=== PATIENT | male | born 1935 | race Caucasian/White ===

== ENCOUNTER 2017-07-25 21:39 | Inpatient (IN) | payer OTHER ==
[~2017-07-25] VITALS: Ht 185.4 cm; Wt 78.9 kg
--- NOTE | ~2017-07-25 | HC ---
[facility] [place] [address] CONSULTATION Name: RILEYLETY Barrett Room #: 354-P [facility] IN M.R.#: [id number] Admission: 07/25/17 Attend Phys: Kevin Browne DO Discharge: Date of : 31 Report #: [id number] THIS REPORT FOR: //name// CC: Kevin Santamaria REASON FOR CONSULTATION: I was asked to evaluate concerning colitis and perforation. HISTORY OF PRESENT ILLNESS: The patient is an 82-year-old with history of hypertension, Parkinson's disease, who presented on 07/25/2017 through the Emergency Room with generalized weakness, fever, increased abdominal pain. CT scan showed an 8 cm wall thickening of the mid ascending colon that was concerning for malignancy. There was focal ulceration of the wall with an intramural abscess surrounding inflammation and multiple hepatic lesions consistent with metastases. He was given broad spectrum antibiotics and sent to surgery today by Dr. Baxter. I was able to discuss with him postoperatively. He found the area of concern with what he thought was a small microperforation into the retroperitoneum with no purulent material, stool or abscess. There were a few bubbles of air identified. Biopsies of the liver were performed as well. There were no intraoperative complications. He did perform a right hemicolectomy. The patient was seen in the postop recovery area and was stable. Oxygenation was adequate on room air. Hemodynamically stable. ALLERGIES: None known. MEDICATIONS: As noted on his OCT, now on vancomycin and Zosyn. PAST MEDICAL HISTORY: Appendectomy, tonsillectomy, prostate cancer with prostatectomy in 2004, Parkinson's disease, hyperlipidemia, hypertension, chronic back pain. FAMILY HISTORY: Noncontributory. SOCIAL HISTORY: He is a nonsmoker, no significant alcohol intake. REVIEW OF SYSTEMS: The patient was unable to give any further details for he is just waking up under anesthesia. PHYSICAL EXAMINATION: VITAL SIGNS: Afebrile, hemodynamically stable. He would arouse and answer simple questions. GENERAL: He was confused. SKIN: Unremarkable. LYMPH: Unremarkable. HEENT: Unremarkable. LUNGS: Clear. [facility] [address] [facility] [place] [address] CONSULTATION Name: LETY LIN Room #: 354-P [facility] IN M.R.#: [id number] Admission: 07/25/17 Attend Phys: Kevin Browne DO Discharge: Date of : 33 Report #: [id number] HEART: Regular with a 2/6 systolic murmur heard at left sternal border. ABDOMEN: Diffusely tender. Drain in the right mid quadrant had serosanguineous output. EXTREMITIES: Unremarkable. LABORATORY STUDIES: Sodium 139, potassium 3.7, bicarbonate 26, creatinine 0.9. Liver function test normal. Albumin at 2.0. Hemoglobin 8.2, WBC 21,000, platelet count was 526,000, neutrophils 86%, bands 1. Urinalysis 1+ ketones, 1+ blood, otherwise unremarkable. Blood cultures are pending. Cultures of the liver lesions were sent and are pending. CT scan as noted above. Chest x-ray, no acute infiltrates. IMPRESSION AND PLAN: An 82-year-old with suspected colon cancer and mets to the liver. This is yet to be confirmed by pathology. Suspecting microperforation into the retroperitoneum. I would recommend continuing Zosyn pending further studies. Duration of antibiotics will depend upon his initial recovery. Follow up CBC post postop. <ELECTRONICALLY SIGNED> By: Blaze Bateman MD 07/30/17 1417 1714 [id number] Blaze Bateman MD /nt
--- NOTE | ~2017-07-25 | HC ---
[facility] [place] [address] CONSULTATION Name: RILEYLETY Barrett Room #: 354-P [facility] IN ..#: [id number] Admission: 07/25/17 Attend Phys: Dimitrios Weston MD Discharge: Date of : 33 Report #: [id number] THIS REPORT FOR: //name// CC: Dimitrios Santamaria DATE OF SERVICE: 07/31/2017 HISTORY OF PRESENT ILLNESS: The patient is an 82-year-old white male with history of Parkinson disease, hypertension, had complaints of weakness, left lower quadrant pain. He was noted to have sepsis secondary to an abdominal abscess and was diagnosed with an ascending colonic mass with a pericolonic abscess. He underwent surgery by Dr. Baxter, with a laparoscopic converted to open right hemicolectomy with stapled ileotransverse colostomy. He also had core needle liver biopsies, this was done on 07/26/2017. He has been seen by Dr. Dutton, in Oncology. The path report appears to still be pending. He did have some confusion, delirium, postoperatively that appears to be improving. We are seeing him in rehabilitation medicine consultation. He was noted to have delirium/encephalopathy, but again this is showing some improvement. Geriatrics is involved and did decrease his Sinemet to one tablet and monitoring in this regard. We are seeing him now in rehabilitation medicine consultation. PAST MEDICAL HISTORY: Parkinson disease, hypertension, elevated cholesterol, chronic back pain, and prostate cancer, status post prostatectomy. Low back issues for which he follows with the [facility] and he has had intermittent injections. PAST SURGICAL HISTORY: Includes adenoidectomy and tonsillectomy. MEDICATIONS: Please see his full medication listing. ALLERGIES: No known drug allergies. HABITS: No history of tobacco or alcohol abuse. SOCIAL HISTORY: Lives with his in an independent living apartment at [facility]. He is a premorbid cane ambulator. He also has a Parkinson's walker that he obtained through the [place] that he will utilize at times as well. Apparently, this is U-step walker with the laser cane. REVIEW OF SYSTEMS: No current complaints of chest pain, shortness of breath, or abdominal discomfort. He has had the chronic back problems. No focal extremity pain complaints at this time. He typically wears TENS. Premorbidly, he was able to put on his own shirt and could typically pull up his TENS, although his did help him with some of his ADLs. [facility] [address] [place] [address] CONSULTATION Name: LETY LIN Room #: 354-P [facility] IN [facility].#: [id number] Admission: 07/25/17 Attend Phys: Dimitrios Weston MD Discharge: Date of : 33 Report #: [id number] PHYSICAL EXAMINATION: GENERAL: An 82-year-old white male, in no obvious distress. VITAL SIGNS: Last recorded temperature is 98.6, pulse 72, respirations 18, blood pressure 139/62. NEUROLOGIC: The patient is alert. He does have some latency to his responses. Defers to his . Appears to be rather concrete, but does follow basic 1 step commands. Need some cues. EOMs appeared to be full. Some evidence of masked facies. CHEST: Sounded clear to auscultation. CARDIOVASCULAR: Regular rate and rhythm. ABDOMEN: He has an abdominal binder in place. EXTREMITIES: He has the wound VAC over the midline incision. Abdomen appears soft. He does have mild resting tremor and has some cogwheeling bilateral wrists and elbows. Strength is grade 4-3+/5. DTRs are trace to 1. Lower extremities, no focal calf swelling, 1+ distal lower extremity edema. Strength is a grade 3+ to 4-/5. DTRs are decreased. There appears to be some mild rigidity. He was max assist with sit to stand and took a few steps mod assist at a walker level. ASSESSMENT: An 82-year-old white male with the following problem list: 1. Parkinson disease. 2. Metabolic encephalopathy, which appears to be improving. 3. Status post hemicolectomy with liver biopsy, 07/26/2017, biopsies are pending. 4. Sepsis secondary to abdominal abscess with suspected colon cancer. 5. Mild pleural effusions. 6. Anemia. 7. Hypertension. 8. History of prostate cancer, status post prostatectomy. 9. Enlarged aorta by history. PLAN: We would anticipate the patient should be a good acute in-hospital inpatient rehabilitation candidate. From a preadmission screening perspective: 1. Prior level of function is well delineated above. 2. Expect the level of improvement would be for him to achieve ambulation at the cane versus walker level. Ideally at a modified independent to supervision level, we would anticipate length of stay of probably at least 10 days to 2 weeks and likely longer if needed. 3. Evaluation of the patient's risk for clinical complications would include his multiple comorbidities as noted above. His encephalopathy continues to be monitored. He has the Parkinson disease. We do not have the path report back yet on his surgery. He has anemia that is being monitored, hypertension, mild pleural effusions. There is also a note of some anorexia/p.o. intake that will need to be monitored. 4. Condition that caused the need for rehabilitation would be the Parkinson disease as well as the acute encephalopathy. [address] [address] CONSULTATION Name: LETY LIN Room #: 354-P ADM IN [facility]#: [id number] Admission: 07/25/17 Attend Phys: Dimitrios Weston MD Discharge: Date of : 33 Report #: [id number] 5. Treatments needed include PT, OT, and speech 1 hour per day each, five days a week throughout the duration of the acute inpatient rehabilitation stay. 6. Anticipated discharge destination would be back to the home setting with his . 7. Would anticipate home healthcare therapies once the patient is ready for discharge home. 8. The patient meets diagnostic criteria for an acute in-hospital inpatient rehabilitation stay. He meets medical necessity criteria with the above noted medical comorbidities. We will have the strategic planning consultant physicians follow. He is on the rehab guidry. He does have the tolerance for an acute rehabilitation level of therapies and has appropriate discharge goals back to the home setting. By: 1200 1251 Yohan Soria MD /COLLEEN
--- NOTE | ~2017-07-25 | S ---
[facility] [address] [place] [address] SURGICAL PATH RPT PROCEDURE Name: LETY LIN Room #: 354-P ADM IN M.R.#: [id number] Admission: 07/25/17 Date of : 31 Discharge: Report #: [id number] Path Case #: [id number] PATHOLOGY REPORT COLLECTION DATE: 07/26/2017 RECEIVED DATE: 07/26/2017 SUBMITTING PHYS: Dr. Eric Baxter OTHER PHYS: Dr. Kevin Santamaria SPECIMEN(S) RECEIVED: A.Right colon B.Liver bx x2 C.Anastomotic ring * * * * * * * * * * * * FINAL DIAGNOSIS: A. "Right colon", hemicolectomy: - ADENOCARCINOMA, MODERATE TO POORLY DIFFERENTIATED, WITH EXTENSIVE ULCERATION AND TUMOR NECROSIS, FORMING THREE SEPARATE MASSES MEASURING 7.4 CM, 6.8 CM AND 4.1 CM THAT ARE SIMILAR MORPHOLOGICALLY, ONE MASS INVADING THROUGH THE MUSCULARIS PROPRIA, INTO THE SUBSEROSAL ADIPOSE TISSUES AND EXTENDING TO THE INKED SEROSAL MARGIN (pT4); MUCOSAL MARGINS FREE OF DYSPLASIA AND CARCINOMA. - Terminal ileum with large inflammatory polyp measuring 1.8 cm; no dysplasia seen. - Lymph nodes (30) with no evidence of metastatic carcinoma (30 nodes). - Omentum, 15.5 cm, with no evidence of carcinoma. B. "Liver bx x2", needle biopsy: - METASTATIC ADENOCARCINOMA WITH EXTENSIVE NECROSIS, MORPHOLOGICALLY SIMILAR TO THE COLON MASSES; NO BACKGROUND VIABLE LIVER TISSUE PRESENT. C. "Anastomotic ring", redawnastomosis: - Small bowel mucosa, submucosa and muscular wall and colonic mucosa, submucosa and muscular wall with reactive changes and chronic inflammation; no evidence of carcinoma. SYNOPTIC CANCER STAGING REPORT SPECIMEN Specimen: Terminal ileum Cecum Ascending colon Procedure: Right hemicolectomy TUMOR [facility] [address] [place] [address] SURGICAL PATH RPT PROCEDURE Name: RILEYLETY E Room #: 354-P [facility] IN [facility]#: [id number] Admission: 07/25/17 Date of : 33 Discharge: Report #: [id number] Path Case #: [id number] Primary Tumor Site: Right (ascending) colon Histologic Type: Adenocarcinoma Histologic Grade: High-grade (poorly differentiated to undifferentiated) Tumor Size: Greatest dimension (cm): 7.4 Tumor Deposits: Present Number of Deposits: Cannot be determined Tumor Extent Site(s) of Direct Extent of Tumor: Right (ascending) colon Microscopic Tumor Extension: Tumor penetrates to the surface of the visceral peritoneum (serosa) Macroscopic Tumor Perforation: Not Identified Accessory Tumor Findings Lymph-Vascular Invasion: Present Perineural Invasion: Present MARGINS All margins uninvolved by invasive carcinoma Distance of Invasive Carcinoma from Closest Margin: Specify (cm): 4.6 Specify Margin: Distal For Resection Specimens Only Proximal Margin: Uninvolved by invasive carcinoma Distal Margin: Uninvolved by invasive carcinoma Distance of Tumor from Margin (required only for rectal tumors): Specify (cm): 4.6 Circumferential (Radial) Margin: Not applicable Mesenteric Margin: Not applicable LYMPH NODES Regional Lymph Nodes: Number of Lymph Nodes Examined: Specify number: 30 Number of Lymph Nodes Involved: Specify number: 0 STAGE (PTNM) Primary Tumor (pT): pT4a: Tumor penetrates the visceral peritoneum Regional Lymph Nodes (pN): pN0: No regional lymph node metastasis Distant Metastasis (pM): pM1: Distant metastasis COMMENT: All three tumor masses are similar histologically. They are moderate to poorly differentiated adenocarcinoma with patchy mucin production. Due to the patient's history of prostate cancer, properly controlled immunohistochemical stains are performed. Block A23 [address] [address] SURGICAL PATH RPT PROCEDURE Name: LETY LIN Room #: 354-P [facility] IN M.R.#: [id number] Admission: 07/25/17 Date of : 33 Discharge: Report #: [id number] Path Case #: [id number] CK7 tumor cells focally reactive CK20 tumor cells non-reactive CDX2 tumor cells focally reactive PSA tumor cells non-reactive PSAP tumor cells non-reactive Overall, based on morphology and immunohistochemistry, the findings are most consistent with a colon primary. Manager Product slides are co-reviewed with Dr. Syed Boyer. The case is discussed with Dr. Andrea Dutton on 07/31/17 at approximately 11:15 AM. (CLW:kelsi; 07/30/2017) PATHOLOGIST: Emiliana Montiel M.D. REPORT ELECTRONICALLY SIGNED BY: Emiliana Montiel M.D. DATE/TIME: 07/31/2017 12:35 * * * * * * * * * * * * GROSS PATHOLOGY: A. Received in formalin labeled "Lety White, right colon" is a right hemicolectomy specimen consisting of a portion of terminal ileum (4.7 x 2.2 cm), a cecum (9.2 x 6.6 x 5.5 cm), and a portion of proximal colon (24.0 x 4.5 cm). The appendix is not present. A portion of yellow-richardson finally lobulated omentum is identified on the distal aspect of the portion of colon, which measures 15.5 x 10.5 x 0.5 cm. The omentum is serially sectioned to reveal no masses or nodules. The serosal surface is pink-richardson and ragged with a 13.0 x 6.6 cm area of richardson-white purulent exudate on the proximal portion of the colon, and a separate richardson-white firm area more distal on the colon measuring 1.6 x 1.5 cm. The specimen is received closed at both ends with staple lines. The specimen is opened to reveal a pedunculated richardson-brown tumor in the terminal ileum, and three tumors present within the colon. The terminal ileum tumor measures 1.8 x 0.8 x 0.7 cm, and is located 1.0 cm from the proximal margin, 3.8 cm from the ileocecal valve, 26.2 cm from the distal margin, and 1.8 cm from the mesenteric margin. Upon sectioning, the tumor does not grossly invade into the muscle wall of the terminal ileum. Colon tumor 1 is pink-richardson, ulcerated, and is nodular, and is located in the proximal portion of the colon and measures 4.6 cm in length and 7.4 cm in width. The tumor measures 9.7 cm to the proximal margin, 15.0 cm to the distal margin, and 2.0 cm to the closest mesenteric margin. The serosal surface deep to the tumor is inked black. Upon sectioning, the tumor grossly invades into the pericolonic fat and measures 0.1 cm from the inked surface. An area is identified where the tumor erodes into the pericolonic fat causing a transmural defect measuring 1.3 x 0.8 x 0.7 cm. This area corresponds with the richardson-white purulent exudate on the proximal portion of the colon. [address] [address] SURGICAL PATH RPT PROCEDURE Name: LETY LIN Room #: 354-P [facility] IN M.R.#: [id number] Admission: 07/25/17 Date of : 33 Discharge: Report #: [id number] Path Case #: [id number] Colon tumor 2 is richardson-brown, necrotic, and ulcerated, measures 5.8 cm in length and 6.8 cm in circumference, and is located 2.9 cm distal from colon tumor 1. Colon tumor 2 measures 15.0 cm to the proximal margin, 8.3 cm to the distal margin, and less than 0.1 cm to the closest mesenteric margin. The serosal surface deep to the tumor is inked blue. Colon tumor 2 is also associated with the first described area of purulent exudate on the serosa. Upon sectioning, the tumor grossly invades into the pericolonic fat and is located less than 0.1 cm from the inked surface. Colon tumor 3 is pink-richardson, ulcerated, and nodular, and is located 2.0 cm distal to tumor 2. Colon tumor 3 measures 3.3 cm in length, 4.1 cm in width, and is located 22.5 cm from the proximal margin, 4.6 cm from the distal margin, and 3.8 cm from the mesenteric margin. Colon tumor 3 is associated with the smaller richardson-white firm area on the serosa. The serosa deep to the tumor is inked green. Upon sectioning, the tumor grossly invades into the muscle wall and grossly abuts the inked serosa (at the richardson-white firm area previously described). The pericolonic fat is serially sectioned and palpated to reveal multiple pink-richardson possible lymph nodes ranging from 0.2-1.0 cm in greatest dimension. Manager Product sections of the specimen are submitted as follows: A1 proximal mucosal margin A2 distal mucosal margin A3 shave of the mesenteric margin closest to colon tumor 1 A4 mesenteric margin closest to colon tumor 2, true margin inked blue, perpendicular section A5 shave of the mesenteric margin closest to colon tumor 3 A6 uninvolved tissue between colon tumors 1 and 2 A7 uninvolved tissue between colon tumors 2 and 3 A8 compliance representative omentum A9 compliance representative ileocecal valve A10 shave of the mesenteric margin closest to the terminal ileum tumor A11-A12 entire terminal ileum tumor A13 transmural defect adjacent to colon tumor 1 A14 purulent exudate on serosa adjacent to colon tumor 1 A15 colon tumor 1 with deepest invasion and to inked surface A16 colon tumor 1 to uninvolved mucosa A17 additional colon tumor 1 A18 colon tumor 2 to uninvolved mucosa A19 colon tumor 2 with deepest invasion and to inked surface A20-A22 addition colon tumor 2 A23 colon tumor 3 to inked serosa A24 colon tumor 3 to uninvolved mucosa A25 additional colon tumor 3 A26-A28 multiple whole lymph nodes A29-A32 three bisected lymph nodes in each cassette, inked black, blue, and green. [address] [address] SURGICAL PATH RPT PROCEDURE Name: LETY LIN Room #: 354-P ADM IN M.R.#: [id number] Admission: 07/25/17 Date of : 33 Discharge: Report #: [id number] Path Case #: [id number] B. Received in formalin labeled "Lety Lin, liver biopsy 2" are two cylindrical cores of richardson-white soft tissue measuring 1.1 x 0.1 and 1.7 x 0.1 cm. The specimen is submitted in cassette B1. C. Received in formalin labeled "Lety Lin, anastomosis" is a 3.3 x 1.2 x 0.8 cm portion of pink-richardson mucosa. The specimen is sectioned to reveal an embedded staple line measuring 1.5 cm. No gross abnormalities are identified. Manager Product sections of the specimen are submitted in cassette C1. ([facility]; 07/28/2017) CLINICAL HISTORY: Perforated ascending colon. INITIAL CPT CODE(S): A; 62753, 31030, 63703, 20383, 68176, 50036, 71046 B; 74255 C; 69961 Professional services performed by [facility] at [place] [address], [place] [address] Technical services performed by [facility] at [address] [place] [address], [address], [place] [address]. [facility] [address] [address] PHONE: [phone] DIRECTOR: Richard Reynoso M.D. * * * END OF REPORT * * *
--- NOTE | ~2017-07-25 | CNG ---
[facility] [place] [address] CYTO-NONGYN REPORT PROCEDURE Name: LETY LIN Room #: 354-P [facility] IN M.R.#: [id number] Admission: 07/25/17 Date of : 33 Discharge: 07/31/17 Report #: [id number] Path Case #: [id number] CYTOPATHOLOGY REPORT COLLECTION DATE: 07/26/2017 RECEIVED DATE: 07/30/2017 SUBMITTING PHYS: Dr. Kevin Browne OTHER PHYS: Dr. Eric Santamaria CLINICAL HISTORY: Perforated ascending colon, sepsis, abdominal pain leukocytosis. SPECIMEN(S) RECEIVED: A.Peritoneal fluid * * * * * * * * * * * * FINAL DIAGNOSIS: A. Peritoneal fluid: Rare atypical cells identified. - Rare atypical cells identified in a marked inflammatory background. Comment: No stainin is seen in the atypical cells with the CDX-2 stain. The atypical cells are positive for calretinin and most likely represent reactive mesothelial cells PATHOLOGIST: Bert Boyer M.D. REPORT ELECTRONICALLY SIGNED BY: Bert Boyer M.D. DATE/TIME: 08/02/2017 08:55 * * * * * * * * * * * * GROSS PATHOLOGY: A. Peritoneal fluid: The specimen is submitted unfixed, labeled "Lety Lin". Received by the Cytology Department is 5 mL of cloudy pink fluid. One ThinPrep slide and a formalin fixed cell block were prepared. (clt 07.30.2017) BIOMASS PRODUCTION MANAGER(S): CRUZITO Newton([facility]) INITIAL CPT CODE(S): A; 27059, 34319, 68631, 42909 Professional services performed by [facility] at [facility] [address], [place] [address] Technical services performed by [facility] at [address] [place] [address], [address] [address]. [facility] [address] [place] [address] CYTO-NONGYN REPORT PROCEDURE Name: LETY LIN Room #: 354-P [facility] IN M.R.#: [id number] Admission: 07/25/17 Date of : 33 Discharge: 07/31/17 Report #: [id number] Path Case #: [id number] [facility] [address] [place] [address], [address] [place] [address] PHONE: [phone] DIRECTOR: Richard Reynoso M.D. * * * END OF REPORT * * *
--- NOTE | ~2017-07-25 | HC ---
[facility] [place] [address] CONSULTATION Name: LETY LIN Room #: 354-P [facility] IN ..#: [id number] Admission: 07/25/17 Attend Phys: Dimitrios Weston MD Discharge: Date of : 33 Report #: [id number] THIS REPORT FOR: //name// CC: Kevin Santamaria MD DATE OF SERVICE: 07/26/2017 TYPE OF REPORT: General surgery consultation. ATTENDING PHYSICIAN: Kevin Browne D.O. REASON FOR CONSULTATION: Abdominal pain and colon mass. HISTORY OF PRESENT ILLNESS: This is an 82-year-old male patient with a history of prostate cancer and Parkinson's disease, who presented to the [place] [facility] with a 2-week history of right-sided abdominal pain, fever (temperature as high as 100 degrees) and unintentional 10-pound weight loss. CT of the abdomen and pelvis was performed, showing an intramural abscess by the Micah rouse. The radiologist at [facility] felt that the colon was more consistent with a perforation. Tumor could not be excluded with local invasion, nor could inflammatory mass be excluded. In addition to this, liver lesions were seen, felt to represent potential metastatic disease. I have been asked to see the patient for further evaluation and treatment. He denies having undergone a colonoscopy in the past. Denies the passage of bright red blood per rectum. He notes no passage of flatus or stools over the past 4 days, although he has been eating up until yesterday. He denies fever or chills. PAST MEDICAL HISTORY: Significant for Parkinson's disease, history of prostate cancer, hypertension, hyperlipidemia and back pain. PAST SURGICAL HISTORY: Includes tonsillectomy, appendectomy and robotic prostatectomy in 2004. HOME MEDICATIONS: Include aspirin, atorvastatin, ezetimibe, carbidopa/levodopa, ascorbic acid, and midodrine. The patient is also receiving vancomycin and Zosyn here in the hospital. ALLERGIES: No known drug allergies. FAMILY HISTORY: Reviewed and noncontributory to this hospitalization. The patient does specifically denies a family history of colon cancer. SOCIAL HISTORY: The patient is and accompanied by his and [address] [address] CONSULTATION Name: LETY LIN Room #: 354-P [facility] IN ..#: [id number] Admission: 07/25/17 Attend Phys: Dimitrios Weston MD Discharge: Date of : 33 Report #: [id number] stepdaughter. He denies use of tobacco in the past. Denies illicit drugs. No recent alcohol use. He is retired from the . REVIEW OF SYSTEMS: As per history of present illness and in addition: CONSTITUTIONAL: In general, the patient reports unintentional weight loss. Denies fever or chills. HEENT: Denies changes in taste, vision, hearing or smell. Has had a poor appetite over the past several weeks. RESPIRATORY: Denies shortness of breath, COPD or asthma. CARDIOVASCULAR: Denies chest pain or palpitations. GASTROINTESTINAL: As per history of present illness. Denies bright red blood per rectum. No bowel movements or flatus in the past 4 days. GENITOURINARY: Denies dysuria, urgency or increased urinary frequency. Has a history of prostate cancer. NEUROLOGICAL: Denies headaches, numbness or tingling. Has a history of Parkinson's disease. PSYCHIATRIC: Denies depression, anxiety or suicidal ideations. ENDOCRINE: Denies polydipsia, polyuria, heat or cold intolerance. HEMATOLOGIC: Denies easy bleeding, bruising or anemia. All other review of systems is negative. PHYSICAL EXAMINATION: VITAL SIGNS: Temperature 100.2, blood pressure 118/68, pulse 82, respirations 18, height 6 feet 1 inch and weight 174 pounds. GENERAL: This is an 82-year-old male patient, in no acute distress. HEENT: Atraumatic and normocephalic with moist mucosal membranes. Oropharynx is clear. He has no scleral icterus. NECK: Supple. No appreciable lymphadenopathy. CHEST: Clear bilaterally. CARDIOVASCULAR: Regular rate and rhythm. ABDOMEN: Soft but tender to palpation in the right abdomen. He has no rebound or guarding. No palpable masses. No appreciable hernias. A vertical periumbilical scar is seen with no associated hernia. GENITOURINARY: Normal external male genitalia. EXTREMITIES: No clubbing, cyanosis or edema. NEUROLOGICAL: Cranial nerves 2 through 12 grossly intact. He has mild parkinsonian changes. SKIN AND INTEGUMENTARY: No acute inflammatory changes, rashes or lesions are present. LABORATORY DATA: CBC this morning shows a white blood cell count 21.0 (23.9 last night), hemoglobin 8.2, hematocrit 24.4 and platelets 526. Electrolytes showed a sodium of 139, potassium 3.7, chloride 105, CO2 26, BUN 11, creatinine 0.9 and glucose 115 with normal liver function tests. RADIOLOGIC STUDIES: CT abdomen and pelvis findings are as noted above. No free [facility] [address] [place] [address] CONSULTATION Name: LETY LIN Room #: 354-P [facility] IN [place]#: [id number] Admission: 07/25/17 Attend Phys: Dimitrios Weston MD Discharge: Date of : 33 Report #: [id number] intraperitoneal air was seen. The liver was noted to demonstrate multiple low-density masses with ill-defined margins, including the left lobe and right lobe. The masses were 3.8 x 3.1 cm and 3.7 x 3.5 cm respectively. These were felt to represent metastatic lesions. In addition to this, a large stone was seen in the left renal pelvis and small calculi were seen in the collecting system on the right. The right colon wall was thickened near the hepatic flexure and ascending colon with some adjacent stranding and inflammatory. There appeared to be perforation through the wall laterally with small gas bubbles lateral to the wall, but no large fluid collection. The bowel pattern was normal without obstruction. IMPRESSION AND PLAN: This is an 82-year-old male patient with a history of prostate cancer, who now has a right colon mass with either an intramural abscess or microperforation with what appeared to be liver masses that appear to be metastases. This could represent either metastatic prostate cancer or metastatic colon cancer. The patient may also be constipated secondary to an obstructive process involving his right colon. We discussed the pathophysiology and natural history of colon cancer with metastasis as well as further evaluation, treatment alternatives and surgical options. The patient has colon cancer until proven otherwise. Given his clinical findings after assessing his medical risk, he will be taken to the Operating Room for either diverting ileostomy (if carcinomatosis is present and resection of the right colon is unsafe) versus a right hemicolectomy. Both of these operations would address his potential obstructive process. We will also obtain liver biopsies. The patient and his family expressed understanding. He was seen with Dr. Dutton as well. The patient expressed understanding and wishes to proceed with the plan. I sincerely appreciate the opportunity to participate in the care of this patient and will leave further recommendations and orders in the electronic medical record as appropriate. <ELECTRONICALLY SIGNED> By: Eric Baxter MD, FACS 07/31/17 1811 [id number] [id number] Eric Baxter MD, FACS /nt
--- NOTE | ~2017-07-25 | EKG ---
[address] [place] [email or web address] [address] ELECTROCARDIOGRAM REPORT Name: LETY LIN Room #: 354-P ADM IN M.R.#: [id number] Admission: 07/25/17 Attend Phys: Kevin Browne DO Discharge: Date of : 33 Report #: [id number] THIS REPORT FOR: //name// [facility] ED Test Date: 2017-07-25 Test Time: 21:57:26 Pat Name: LETY LIN Department: Room: 354 Gender: M Labor Relations Manager: JENNIFER : 1935 Requested By: Nickie Yuen Order Number: [id number] MD: Hai Mathur Measurements Intervals [place] Rate: 94 P: 67 NE: 172 QRS: 25 QRSD: 76 T: 24 QT: 351 QTc: 439 Interpretive Statements Sinus rhythm Atrial premature complex Compared to ECG 07/08/2016 18:59:48 Atrial premature complex(es) now present Ventricular premature complex(es) no longer present Electronically Signed On 07-26-2017 9:13:18 EMPLOYMENT LEGAL ASSISTANT by Hai Mathur [email or web address] <ELECTRONICALLY SIGNED> By: Hai Mathur MD, [facility] 07/26/17912 56 56 Hai Mathur MD, [facility] /EPI
--- NOTE | ~2017-07-25 | O ---
[address] [address] OPERATIVE REPORT Name: LETY LIN Room #: 354-P [facility] IN M.R.#: [id number] Admission: 07/25/17 Attend Phys: Dimitrios Weston MD Discharge: Date of : 33 Report #: [id number] THIS REPORT FOR: //name// CC: Kevin Santamaria MD DATE OF SERVICE: 07/26/2017 SURGEON: Eric Baxter MD EMERGENCY VEHICLE DRIVER: Nayely Savage MD PREOPERATIVE DIAGNOSES: 1. Ascending colon mass with change in bowel habits and weight loss. 2. Liver lesions. 3. History of prostate cancer, status post robotic radical prostatectomy. 4. Parkinson disease. 5. Hypertension. 6. Hyperlipidemia. POSTOPERATIVE DIAGNOSES: 1. Ascending colon mass with change in bowel habits and weight loss. 2. Liver lesions. 3. History of prostate cancer, status post robotic radical prostatectomy. 4. Parkinson disease. 5. Hypertension. 6. Hyperlipidemia. PROCEDURES: 1. Laparoscopic converted to open right hemicolectomy with stapled ileotransverse colostomy 2. Core needle liver biopsies x 2. ANESTHESIA: General endotracheal anesthesia and local anesthetic. ESTIMATED BLOOD LOSS: 150 mL. SPECIMEN: Right colon, anastomosis, core needle liver biopsies x 2, peritoneal fluid. COMPLICATIONS: None appreciated. INDICATION FOR PROCEDURE: This is an 82-year-old male patient with a history of [address] [place] [address] OPERATIVE REPORT Name: LETY LIN Room #: 354-P [facility] IN .R.#: [id number] Admission: 07/25/17 Attend Phys: Dimitrios Weston MD Discharge: Date of : 33 Report #: [id number] prostate cancer who has had difficulty with unintentional weight loss of 10 pounds over the past 2 weeks with right-sided abdominal pain. Over the past 4-5 days, he has not passed flatus or bowel movements. He was seen in the [facility] where he underwent a CT of the abdomen and pelvis showing a right colon mass as well as liver lesions that appeared to be metastases. The patient presents now for diagnostic laparoscopy with possible ileostomy versus hemicolectomy and liver biopsies. OPERATIVE FINDINGS: Upon entrance into the abdominal cavity, free fluid was seen in the pelvis. The hepatic lesions were easily visible and were firm and indurated. Omentum was adherent to the liver lesions. Omentum was also present overlying the right colon. There was no evidence for carcinomatosis. Based on these findings, it was felt possible that the patient could undergo right hemicolectomy; however, it would need to be performed in an open fashion. After opening the patient, the right colon (mostly hepatic flexure) was involved with the mass and inflammatory change. The colon mass was directly adherent to the underlying duodenum. There was no kidney or ureteral involvement. The liver lesions were consistent with metastases. After taking the biopsies with the Monopty device, there was essentially no bleeding in the areas from where the biopsies were taken. No other significant pathology was seen. There was no evidence for gross perforation as no abscess or pus was seen, no stool was present. The tissue was edematous extending to the retroperitoneum, which may explain the CT findings. After completing the [id number], functional end-to-side anastomosis from the terminal ileum to the transverse colon, the anastomosis was palpably patent with no tension, whatsoever on the anastomosis. At the conclusion of the operation, the sponge, needle and instrument counts were correct. DESCRIPTION OF PROCEDURE IN DETAIL: After the risks, benefits, and expectations of the operation were discussed in detail with the patient and his family, informed consent was obtained. The patient was identified in the preoperative holding area. He was given IV antibiotics as documented in the chart in line with the [facility] (he was receiving scheduled IV antibiotics). The patient was then taken to the operating room. He was placed in supine position. SCDs were placed on the patient's bilateral lower extremities and pneumatic compression was initiated. The patient was then given IV sedation and he was intubated without incident. A timeout was performed to identify the correct patient and procedure after prepping and draping his abdomen in the standard sterile fashion. Local anesthetic was infiltrated into the skin and subcutaneous tissue infraumbilically where a small vertical midline incision was made. A small fascial incision was made and a 5 mm Visiport was placed intraperitoneally with a 0-degree angled laparoscope. Pneumoperitoneum was achieved with insufflation of carbon dioxide to 15 mmHg. A 30 degree angled laparoscope was then inserted. The liver metastasis was seen. Other findings are as noted above. [address] [address] OPERATIVE REPORT Name: RILEYLETY E Room #: 354-P [facility] IN M.R.#: [id number] Admission: 07/25/17 Attend Phys: Dimitrios Weston MD Discharge: Date of : 33 Report #: [id number] I then broke scrub to talk to the patient's family. As it appeared that the right colon, or at least the cecum, was not involved with the cancer or did not appear to be cancerous and there was no evidence for carcinomatosis, my recommendation was for a right hemicolectomy with an anastomosis to avoid an ileostomy. The patient's family was in favor of this. I then returned to the operating room. After rescrubbing and gowning, I made a vertical midline incision from the xiphoid inferiorly. Electrocautery was used to dissect through the subcutaneous tissue down to the fascia. The fascia and peritoneal lining were then opened along the length of the incision. Findings are as noted above. The proximal end point of transection was identified. A window was made in the mesentery. A blue load 75 mm KYLER stapler was then used to staple and divide the terminal ileum in this area. The white line of Toldt was then taken down with electrocautery and appropriate traction. Dissection was carried up around the hepatic flexure. The omentum was then divided medially where the mass was palpable. An area was chosen that was 10 cm distal to this. The omentum was divided in this area. The colon was then divided with the 75 mm KYLER stapler. The EndoSeal device was then used to divide the colonic mesentery toward the hepatic flexure. Care was taken to identify the underlying duodenum. The colon was divided directly off of the duodenum with blunt dissection and sharp dissection with judicious use of electrocautery to ensure that there is no violation of the duodenum. The colon was adherent to the liver and was taken off of this area without difficulty. The mesentery was then completely transected. The ileocolic vessel was oversewn for hemostasis with a 3-0 PDS suture. The specimen was then removed. Monopty needle liver biopsies were then taken from the right anterior liver x 2. Cultures were taken from this area as well after the needle was used to penetrate the liver. There was no bleeding. Nonetheless, the openings were cauterized. Fluid was suctioned from the abdominal cavity and this was sent for specimen as well. The abdominal cavity was then irrigated and suctioned. The anastomosis was created next. The antimesenteric corners were aligned and the 3-0 PDS suture was used to approximate these areas. The antimesenteric staple line corners were then excised. Each limb of the 75 mm blue load KYLER stapler was passed down each limb of the colon and small bowel. The stapler was then connected and fired. The common ileocolotomy was then grasped and stapled off with a blue load TX stapler. The tissue was excised and sent as specimen (anastomosis). The crotch of the anastomosis was then reinforced with a 3-0 PDS suture as an anti-tension suture. The staple line was oversewn with interrupted 3-0 PDS Lembert sutures. The anastomosis was palpably patent without tension. The abdominal cavity was then irrigated and suctioned and return of all drainage ran clear. A drain was placed in the abdomen and brought out through a stab [facility] [address] [place] [address] OPERATIVE REPORT Name: LETY LIN Room #: 354-P [facility] IN M.R.#: [id number] Admission: 07/25/17 Attend Phys: Dimitrios Weston MD Discharge: Date of : 33 Report #: [id number] wound in the right lower quadrant. The drain was secured to the skin with a 2-0 nylon suture. The drain was positioned intraabdominally along the right pericolic gutter and into the subhepatic space. A nasogastric tube was placed by anesthesia and was palpated to be in good position. After ensuring that the sponge, needle and instrument counts were correct, the midline abdominal wall fascia was closed with a running looped #1 PDS suture. The wound was irrigated. Elise were used for closure. A Prevena negative pressure topical wound VAC was then applied after cleansing the skin. The patient tolerated the procedure well. He was awakened extubated, and taken to the recovery room in stable condition with no apparent intraoperative complications. <ELECTRONICALLY SIGNED> By: Eric Baxter MD, FACS 07/31/171810 07 47 Eric Baxter MD, FACS /nt
--- NOTE | ~2017-07-25 | HC ---
[facility] [address] [address] CONSULTATION Name: LETY LIN Room #: 354-P [facility] IN M.R.#: [id number] Admission: 07/25/17 Attend Phys: Dimitrios Weston MD Discharge: 07/31/17 Date of : 33 Report #: [id number] THIS REPORT FOR: //name// CC: Blaze Baxter MD DATE OF SERVICE: 07/26/2017 PHYSICIAN REQUESTING CONSULT: Dr. Browne. REASON FOR CONSULTATION: Possible colon cancer with liver mets. HISTORY OF PRESENT ILLNESS: The patient is an 82-year-old gentleman with about a week to 2-week history of right lower abdominal pain and 10-pound weight loss and feeling poorly, also temperature to 100. He came into the ER. CAT scan appears to show colonic wall thickening with possible pericolonic abscess and possible liver mets. Note that the report is not available; this was just alluded to in the admitting and ER doctors' notes. The patient was interviewed in the presence of his and also a daughter, who is, I believe, a stepdaughter, though she is a nurse. She did not work in the clinic. She went from school to work at [employer]. 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 also worked at the [employer] at [facility] location site. The patient is aware of the low-grade fever, has had lower abdominal pain, has had weight loss and anorexia, has had increasing weakness. He has not had any dysuria. He has not had any new arm or leg swelling. He has not really had any heat or cold intolerance. Denied any rash or headache. PAST MEDICAL HISTORY: Notable for an appendectomy many decades ago; tonsillectomy in 1947; prostate cancer with prostatectomy at in 2004; Parkinson disease, followed by Dr. Rinaldi; hyperlipidemia; hypertension and chronic back pain. MEDICATIONS: At home included aspirin, atorvastatin, ezetimibe, carbidopa/levodopa, ascorbic acid and midodrine. Here in the hospital, his current medications include carbidopa/levodopa 2 tabs on a scheduled basis, vancomycin q.12h., hydrochlorothiazide 12.5 q.48h., famotidine 20 b.i.d. IV, atorvastatin 80 mg daily, ezetimibe 10 mg daily, Zosyn 3.375 q. 6h. IV, fentanyl p.r.n., Tylenol p.r.n., MiraLax available, Zofran p.r.n. and IV fluids. [address] [address] CONSULTATION Name: RILEYLETY Arnold Room #: 354-P [facility] IN [facility].#: [id number] Admission: 07/25/17 Attend Phys: Dimitrios Weston MD Discharge: 07/31/17 Date of : 33 Report #: [id number] SOCIAL HISTORY: The patient is a never smoker. Alcohol user, not recently. No street drugs. He is retired. FAMILY HISTORY: It sounds like there is some cardiac disease. No specific cancers. No specific colon cancers. Note the patient has never had a colonoscopy. PHYSICAL EXAMINATION: VITAL SIGNS: Height is 6 feet 1, 185.4 cm; weight 174 pounds, 78.9 kilograms. Blood pressure is 118/68, O2 sat 96, pulse 82 and temperature 100.2. GENERAL: The patient appears to be alert and oriented. HEENT: The face is symmetrical. Oropharynx clear. LUNGS: Have symmetric unlabored respirations. CARDIAC: Regular rate. ABDOMEN: Slightly obese, slightly tender right lower quadrant, not examined. EXTREMITIES: Without clubbing or cyanosis. LABORATORY DATA: Lab review shows a BUN of 15, creatinine of 0.9. Transaminases pending. Albumin pending. Iron tests pending. Coags pending. White blood count 23.9, hemoglobin 9, MCV 74.9 and platelets 552,000. Ferritin pending. Folate and B12 pending. U/A, negative leukocytes. ASSESSMENT AND PLAN: 1. Probable colon cancer with liver metastasis. We will await tissue diagnosis. 2. Pericolonic abscess, may be related to perforation. We will defer to GI, Infectious Disease and Surgery. whether image-guided drainage tube with antibiotics or surgery. The patient has been cautioned that if they do surgery, they may do a temporary colostomy. Antibiotics and surgery per others. 3. Anemia. We will await iron tests. We will likely consider IV iron. 4. Parkinson's. Meds per others. 5. Hypertension. Meds per others. 6. Lipids. Meds per others. 7. Prostate cancer, NAD. We will follow with you. <ELECTRONICALLY SIGNED> By: Andrea Dutton MD 08/01/17 0840 0759 1101 Andrea Dutton MD /nt
--- NOTE | ~2017-07-25 | HC ---
[facility] [place] [address] CONSULTATION Name: LETY LIN Room #: 354-P [facility] IN .R.#: [id number] Admission: 07/25/17 Attend Phys: Kevin Browne DO Discharge: Date of : 33 Report #: [id number] THIS REPORT FOR: //name// CC: DR TACOS Baxtre MD DATE OF SERVICE: 07/27/2017 HISTORY OF PRESENT ILLNESS: The patient is an 82-year-old male who has been complaining of right-sided abdominal pain. This has been ongoing for several weeks. The today is giving most of the history. There has been no blood in the stools. The patient has never had a colonoscopy before. He had been apparently becoming much more weak in general. He has also had a 10-pound weight loss recently. Apparently, a sister was recently diagnosed with colon cancer and had this removed. The patient does have a previous history of prostate cancer status post resection. He has a history of Parkinson disease as well as other medical problems. He underwent a CT scan of the abdomen and pelvis on admission which showed 8-cm wall thickening in the mid ascending colon. This may be consistent with a malignancy, possible abscess or perforation. Multiple hepatic masses consistent with metastases were also noted; therefore, Dr. Eric Baxter was consulted, and the patient went to the operating room yesterday, in which Dr. Baxter performed a right hemicolectomy, an ascending colon mass was noted. Again, multiple liver lesions were seen. Biopsies of the liver lesions were also obtained. No mention of abscess was noted. Today, the patient is postop day #1. He denies any significant abdominal pain. He is on clear liquids currently. Family members are present. He denies any fevers or chills. No chest pain or shortness of breath currently. PAST MEDICAL HISTORY: Parkinson disease, hypertension, hyperlipidemia. Previous history of prostate cancer, status post resection. Previous appendectomy, chronic back pain. REVIEW OF SYSTEMS: As per HPI. MEDICATIONS ON ADMISSION: Aspirin, Lipitor, Zetia, Sinemet, vitamin C, midodrine, Norvasc, Cozaar, hydrochlorothiazide, clonazepam, Cymbalta, Centrum Silver, Ultram. ALLERGIES: No known drug allergies. SOCIAL HISTORY: Denies any tobacco or alcohol use. [address] [address] CONSULTATION Name: LETY LIN Room #: 354-P [facility] IN [facility]#: [id number] Admission: 07/25/17 Attend Phys: Kevin Browne DO Discharge: Date of : 33 Report #: [id number] PHYSICAL EXAMINATION: VITAL SIGNS: Temperature is 36.7, pulse 84, blood pressure is 135/78, respiratory rate is 20. GENERAL: He is alert and oriented x 3, in no acute distress. HEENT: Sclerae nonicteric. Oropharynx clear. NECK: Supple, without lymphadenopathy. CARDIOVASCULAR: Regular rate and rhythm. CHEST: Clear to auscultation anteriorly bilaterally. ABDOMEN: Soft. It is nondistended. There is a wound VAC in place in the midline incision. EXTREMITIES: No cyanosis, clubbing or edema. LABORATORY DATA: WBC is 26.5, hemoglobin 9.1, platelet count 622. Sodium 140, potassium 4.1, chloride 104, bicarbonate 22, BUN 19, creatinine 1.4, glucose 167. Iron 11, TIBC 143, percent sat 8. INR 1.3. ASSESSMENT AND PLAN: Colon mass, status post right hemicolectomy, multiple liver lesions suggest possibility of colon cancer with metastatic disease. The patient does have a previous history of prostate cancer, but this was resected years ago. He is postop day #1, doing well at this time. Agree with current regimen and supportive care. Dr. Dutton has also been consulted. We will continue to follow. Thank you for allowing me to participate in his care. <ELECTRONICALLY SIGNED> By: Jason Shah MD 07/28/17 1414 1054 1507 Jason Shah MD /nt
[~2017-07-25 21:39] MED LIST: AFLEXERYL-LC 41 EACH TOP; ASPIR 8181 MG PO; CENTRUM SILVER1 EAC2 PO; CLONAZEPAM 0.50.5 M1 PO; COZAAR 50 MG TA50 M2 PO; CYMBALTA30 MG PO; HYDROCHLOROTHIA25 M2 PO; KEFLEX500 MG PO; LIPITOR80 MG PO; MIDODRINE PO; NORCO 5-325 TA1 EACH PO; NORVASC2.5 MG PO; SINEMET 25-1001 EAC1 PO; TRAMADOL 50 MG50 MG PO; VITAMINC500 PO; VOLTAREN GEL 1100 G2 TOP; ZETIA10 MG PO
[2017-07-25 21:45] VITALS: BP 108/48
[2017-07-25 22:18] LABS: HEMATOCRIT 26.9 % (42.0-52.0); MCHC 33.5 g/dL (28.0-37.0); MCV 74.9 fL (80.0-100.0); PLATELET COUNT 552 thou/uL (150-400); RBC 3.59 mil/uL (4.50-6.00); RDW 15.3 % (10.5-14.5); WBC 23.9 thou/uL (4.0-11.0)
[2017-07-25 22:19] LABS: MANUAL DIFF YES
[2017-07-25] MEDS ORDERED: MIDODRINE HCL 55 M1 PO (22:23)
[2017-07-25 22:28] LABS: ANION GAP 10 mmol/L (7-16); BUN 15 mg/dL (7-18); CALCIUM 8.5 mg/dL (8.5-10.1); CHLORIDE 101 mmol/L (98-107); CO2 26 mmol/L (21-32); CREATININE 0.9 mg/dL (0.7-1.3); GLUCOSE 149 mg/dL (74-106); POTASSIUM 3.7 mmol/L (3.5-5.1); SODIUM 137 mmol/L (136-145)
[2017-07-25 22:36] LABS: TROPONIN-I < 0.04 ng/mL (<0.06)
[2017-07-25 22:40] LABS: ABSOLUTE NEUTROPHILS 20.8 thou/uL (1.4-8.2); ANISOCYTOSIS 1+; MICROCYTES 2+; POLYCHROMASIA OCCASIONAL; TOTAL CELL COUNT 100
[2017-07-25 22:41] LABS: HYPOCHROMASIA SLIGHT
[2017-07-25 23:16] LABS: URINE BLOOD 1+ (Negative); URINE COLOR YELLOW; URINE GLUCOSE-RANDOM* NEGATIVE (Negative); URINE KETONES 1+ (Negative); URINE NITRITE NEGATIVE (Negative); URINE PROTEIN (DIPSTICK) NEGATIVE (Negative); URINE UROBILINOGEN 0.2 E.U./dl (0.2-1.0)
[2017-07-25 23:23] LABS: URINE BILIRUBIN NEGATIVE (Negative)
[2017-07-25 23:25] LABS: BACTERIA 1-9 Few /HPF (None Seen); CASTS None Seen /LPF (None Seen); CRYSTALS None Seen /LPF (None Seen); SQUAMOUS None Seen /LPF (0-3); TRANSITIONAL EPITHEL CELL 0-3 Few /LPF (None Seen); URINE RBC 3-10 Few /HPF (0-2); URINE WBC None Seen /HPF (0-5)
[2017-07-25 23:26] LABS: AMORPHOUS URATES Few /LPF (None Seen)
[2017-07-26] VITALS (9 sets, daily range): BP systolic 112–135; BP diastolic 57–77
[2017-07-26] MEDS ORDERED: HYDROCHLOROTHIA25 M2 PO (03:16)
[2017-07-26 07:48] LABS: HEMATOCRIT 24.4 % (42.0-52.0); HEMOGLOBIN 8.2 gm/dL (14.0-18.0); MCH 25.1 pg (26.0-34.0); MCHC 33.4 g/dL (28.0-37.0); RBC 3.25 mil/uL (4.50-6.00); RDW 15.2 % (10.5-14.5)
[2017-07-26 08:01] LABS: INR 1.3; PROTIME 13.4 Seconds (9.3-11.4)
[2017-07-26 08:07] LABS: CALCIUM 8.2 mg/dL (8.5-10.1); CREATININE 0.9 mg/dL (0.7-1.3); POTASSIUM 3.7 mmol/L (3.5-5.1); TOTAL BILIRUBIN 0.7 mg/dL (<0.1-1.0); TOTAL PROTEIN 5.6 g/dL (6.4-8.2)
[2017-07-26 08:08] LABS: % SATURATION 8 % (20-39); IRON 11 ug/dL (65-175); TIBC 143 ug/dL (250-450); UIBC 132 ug/dL
[2017-07-26 09:18] LABS: FOLIC ACID 19.9 ng/mL (8.6-58.9)
[2017-07-27 03:09] VITALS: BP 134/83
[2017-07-27 07:41] LABS: HEMATOCRIT 27.9 % (42.0-52.0); HEMOGLOBIN 9.1 gm/dL (14.0-18.0); MCH 24.7 pg (26.0-34.0); MCHC 32.6 g/dL (28.0-37.0); MCV 75.7 fL (80.0-100.0); RBC 3.69 mil/uL (4.50-6.00); RDW 15.2 % (10.5-14.5); WBC 26.5 thou/uL (4.0-11.0)
[2017-07-27 07:48] LABS: PLATELET COUNT 622 thou/uL (150-400)
[2017-07-27 07:49] LABS: MANUAL DIFF YES
[2017-07-27 07:52] LABS: CALCIUM 8.6 mg/dL (8.5-10.1); CREATININE 1.4 mg/dL (0.7-1.3); POTASSIUM 4.1 mmol/L (3.5-5.1)
[2017-07-27 08:00] VITALS: BP 135/78
[2017-07-27 08:10] LABS: ABSOLUTE NEUTROPHILS 24.9 thou/uL (1.4-8.2); ANISOCYTOSIS 1+; HYPOCHROMASIA SLIGHT; MICROCYTES 2+; POLYCHROMASIA OCCASIONAL; TOTAL CELL COUNT 100
[2017-07-27 12:00] VITALS: BP 123/66
[2017-07-27 16:00] VITALS: BP 94/53
[2017-07-27 19:40] VITALS: BP 108/54
[2017-07-28 04:05] VITALS: BP 158/79
[2017-07-28 04:20] VITALS: BP 132/87
[2017-07-28 07:15] VITALS: BP 123/67
[2017-07-28 07:36] LABS: HEMATOCRIT 24.2 % (42.0-52.0); HEMOGLOBIN 7.9 gm/dL (14.0-18.0); MCH 24.6 pg (26.0-34.0); MCHC 32.7 g/dL (28.0-37.0); PLATELET COUNT 629 thou/uL (150-400); RBC 3.23 mil/uL (4.50-6.00); RDW 15.5 % (10.5-14.5); WBC 24.5 thou/uL (4.0-11.0)
[2017-07-28 07:41] LABS: MANUAL DIFF YES
[2017-07-28 07:43] LABS: CALCIUM 8.3 mg/dL (8.5-10.1); CREATININE 1.6 mg/dL (0.7-1.3); POTASSIUM 3.9 mmol/L (3.5-5.1)
[2017-07-28 07:57] LABS: ABSOLUTE NEUTROPHILS 22.8 thou/uL (1.4-8.2); PLATELET ESTIMATE INCREASED; TOTAL CELL COUNT 100
[2017-07-28 11:32] VITALS: BP 131/64
[2017-07-28 15:39] VITALS: BP 104/72
[2017-07-28 19:20] VITALS: BP 106/63
[2017-07-29 03:48] VITALS: BP 124/68
[2017-07-29 07:43] LABS: HEMATOCRIT 24.9 % (42.0-52.0); MANUAL DIFF YES; MCH 24.2 pg (26.0-34.0); MCV 75.5 fL (80.0-100.0); PLATELET COUNT 634 thou/uL (150-400); RBC 3.29 mil/uL (4.50-6.00); RDW 15.5 % (10.5-14.5)
[2017-07-29 07:51] LABS: CALCIUM 8.3 mg/dL (8.5-10.1); CREATININE 1.4 mg/dL (0.7-1.3); POTASSIUM 3.9 mmol/L (3.5-5.1)
[2017-07-29 08:11] LABS: ABSOLUTE NEUTROPHILS 11.3 thou/uL (1.4-8.2); PLATELET ESTIMATE INCREASED; TOTAL CELL COUNT 100
[2017-07-29 19:55] VITALS: BP 124/54
[2017-07-30 04:15] VITALS: BP 120/60
[2017-07-30 05:47] LABS: HEMATOCRIT 23.3 % (42.0-52.0); HEMOGLOBIN 7.6 gm/dL (14.0-18.0); MCH 24.7 pg (26.0-34.0); MCHC 32.6 g/dL (28.0-37.0); MCV 75.6 fL (80.0-100.0); PLATELET COUNT 596 thou/uL (150-400); RBC 3.09 mil/uL (4.50-6.00); RDW 15.4 % (10.5-14.5); WBC 16.5 thou/uL (4.0-11.0)
[2017-07-30 05:48] LABS: MANUAL DIFF YES
[2017-07-30 06:03] LABS: CALCIUM 7.9 mg/dL (8.5-10.1); CREATININE 1.2 mg/dL (0.7-1.3); POTASSIUM 3.4 mmol/L (3.5-5.1)
[2017-07-30 07:43] LABS: ABSOLUTE NEUTROPHILS 12.9 thou/uL (1.4-8.2); ANISOCYTOSIS 1+; METAMYELOCYTES 1 %; MYELOCYTES 1 %; TOTAL CELL COUNT 100
[2017-07-30 07:59] VITALS: BP 136/68
[2017-07-30 08:59] LABS: OVALOCYTES 1+; POLYCHROMASIA OCCASIONAL
[2017-07-30 17:09] VITALS: BP 128/67
[2017-07-31] VITALS: BP 150/61
[2017-07-31 04:00] VITALS: BP 134/75
[2017-07-31 08:16] VITALS: BP 139/62
== END 2017-07-31 20:01 | DRG 853 ==
LOC: ER 21:39 → EROBS 23:44 → 3W 23:44 → 4N 07-26 00:40 → 3W 07-26 03:38
PROVIDERS: Emergency Medicine; Internal Medicine Gastroenterology; Nurse Practitioner Family; Registered Nurse; Surgery
PROC: 0D1L0Z4 Bypass Transverse Colon to Cutaneous, Open Approach (ICD-10-PCS; principal; 2017-07-26)
PROC: 0FB00ZX Excision of Liver, Open Approach, Diagnostic (ICD-10-PCS; principal; 2017-07-26)
PROC: 0DTF0ZZ Resection of Right Large Intestine, Open Approach (ICD-10-PCS; principal; 2017-07-26)
DX: A41.9 Sepsis, unspecified organism (principal); K65.1 Peritoneal abscess; E43 Unspecified severe protein-calorie malnutrition; G93.40 Encephalopathy, unspecified; C78.7 Secondary malignant neoplasm of liver and intrahepatic bile duct; J90 Pleural effusion, not elsewhere classified; I10 Essential (primary) hypertension; E78.00 Pure hypercholesterolemia, unspecified; G20 Parkinson's disease; D64.9 Anemia, unspecified; M54.9 Dorsalgia, unspecified; G89.29 Other chronic pain; Z79.899 Other long term (current) drug therapy; Z85.46 Personal history of malignant neoplasm of prostate; Z82.49 Family history of ischemic heart disease and other diseases of the circulatory system; Z90.49 Acquired absence of other specified parts of digestive tract; Z68.23 Body mass index [BMI] 23.0-23.9, adult
CPT/HCPCS: 10879; 50010; 50093; 50101; 50249; 50331; 50386; 50555; 50953; 50962; 51412; 51435; 51489; 51708; 51712; 52265; 53307; 56525; 56527; 56530; 56639; 57092; 62110; 62900; 70005

== ENCOUNTER 2017-07-31 13:34 | Inpatient (IN) | payer OTHER ==
[~2017-07-31] VITALS: Ht 182.9 cm; Wt 81.1 kg
--- NOTE | ~2017-07-31 | HC ---
[facility] [place] [address] CONSULTATION Name: LETY LIN Room #: 509-P [facility] IN M.R.#: [id number] Admission: 07/31/17 Attend Phys: Yohan Soria MD Discharge: Date of : 33 Report #: [id number] THIS REPORT FOR: //name// CC: Yohan Soria Obey Santamaria DATE OF SERVICE: 08/07/2017 This is a neurobehavioral status exam. ATTENDING PHYSICIAN: Yohan Soria MD AGRICULTURAL EQUIPMENT DESIGN ENGINEER: Marcello Lagunas, PhD CLINICAL PRESENTATION: The patient is an 82-year-old male admitted to the [facility] Unit for a comprehensive inpatient rehabilitation program to improve functional mobility, activities of daily living and self-care and mental status secondary to deficits from metabolic encephalopathy and Parkinson's disease. The patient is status post hemicolectomy with liver biopsy, sepsis secondary to abdominal abscess was suspected colon cancer, mild pleural effusion, anemia, hypertension, history of prostate cancer, status post prostatectomy and enlarged aorta by history. A complete description of his medical condition and history can be found in his medical record. Neuropsychological consultation was requested to provide assistance in the assessment of cognitive and emotional status and to provide recommendations and services. Prior to this most recent medical event, he was living at home with his . She was providing some assistance with instrumental activities of daily living. 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 He was also in the for 3 rotations during the [place] [employer]. He is a high school graduate. The patient has 3 children. They did not report a history of treatment for depression or anxiety. TECHNIQUES UTILIZED: Clinical interview, review of medical records, staff consultation and behavioral observation, and mini mental status exam 2 standard version and category fluency. EXAMINATION FINDINGS: The patient was alert and cooperative with the assessment. He was unable to describe the reason for his hospitalization. There is no evidence of aphasia. His thoughts are logical and goal oriented. There is no evidence of thought disorder. He does not report auditory or visual hallucinations. He is reported to have had period or visual hallucinations subsequent to his surgery and use of narcotic pain medication. History of visual hallucinations associated with narcotic medication is reported. He describes his symptoms to include subjective anxiety, variability in sleep and [facility] [address] [address] CONSULTATION Name: LETY LIN Room #: 509-P [facility] IN [facility].#: [id number] Admission: 07/31/17 Attend Phys: Yohan Soria MD Discharge: Date of : 33 Report #: [id number] difficulty with memory. Appetite is reported as within normal limits. His notes that the patient is more alert at this time, but had a period of confusion and disorientation earlier in his recovery. His performance on the MMSE 2 brief version is extremely low with a raw score of 8 of 16. He was 3/3 for initial registration, 3/5 for orientation to time, 1/[address] and 1/3 for immediate recall of 3 items after a brief time delay and distraction. Extremely low performance suggests variability in his orientation along with ability to sustain attention and concentrate. His performance was extremely low on the MMSE 2 standard version to a raw score of 18 of 30. He was 2/5 for serial sevens, 2/2 for naming, 1/1 for repetition, 3/3 for auditory comprehension. He could read and follow single command. The patient was able to dictate a sentence. He was unable to copy a simple geometric design. His performance on category fluency was at the 7th percentile, which is in the borderline range with a raw score of 9 and a T score of 35. The patient is presenting with an impairment in orientation, attention/concentration and immediate recall. 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 RECOMMENDATIONS: The patient's is very supportive and provides assistance in helping him manage instrumental activities of daily living. At this time, the patient will benefit from continued cognitive rehab with a focus on subcortical areas of dysfunction including attention, concentration and organization. Use of compensatory strategies that include a note card with general orientation information and other strategies to assist in compensating for deficits in cognition will help him alleviate intermittent anxiety regarding his recovery. The patient's delirium appears to have resolved. Continued reorientation, verbal praise and complements about participation in therapies along with pointing out strengths and resources that she can use to assist in compensation will also help with overall adjustment. [address] [address] CONSULTATION Name: LETY LIN Room #: 509-P [facility] IN .R.#: [id number] Admission: 07/31/17 Attend Phys: Yohan Soria MD Discharge: Date of : 33 Report #: [id number] Thank you very much for allowing me to provide the consultation on this patient. <ELECTRONICALLY SIGNED> By: Marcello Lagunas, PhD 08/09/17 1841 [id number] Marcello Lagunas, PhD /nt
--- NOTE | ~2017-07-31 | PLAN ---
[facility] [place] [address] REHAB UNIT PLAN OF CARE Name: LETY LIN Room #: 501-A [facility] IN ..#: [id number] Admission: 07/31/17 Attend Phys: Yohan Soria MD Discharge: Date of : 33 Report #: [id number] THIS REPORT FOR: //name// CC: Yohan Santamaria DATE OF SERVICE: 08/02/2017 PROGRESS NOTE/OVERALL PLAN OF CARE The patient is seen back today in followup. He is in no distress. Temperature 37.4, pulse 74, respirations 16, blood pressure 126/66. Oncology has seen him with path results as noted. He does have colon cancer with liver mets. We will need further workup as an outpatient. He has been involved in therapies with transfers max assist, gait max assist 10 feet with a front-wheeled walker. In occupational therapy, upper body dressing setup lower body max assist. In speech therapy, he has mild comprehensive deficits. ASSESSMENT: 1. Parkinson's disease. 2. Metabolic encephalopathy. Noted to be improving. 3. Status post hemicolectomy with liver biopsy. Noted to have colon CA with liver mets. 4. Sepsis secondary to abdominal abscess. 5. Mild pleural effusion. 6. Anemia. 7. Hypertension. 8. History of prostate cancer, status post prostatectomy. 9. Enlarged aorta. PLAN: The overall plan of care is based on the preadmission screen, post-admission physician evaluation and information garnered from therapy assessments. 1. Estimated length of stay is going to be at least 2 weeks, most likely. He does have problems as far as balance posture activities, some festination. 2. Medical prognosis is reasonably good. 3. Anticipated interventions includes the interdisciplinary acute inpatient rehabilitation program with the goal of maximizing his functional independence, so he can hopefully return back to his prior living situation. 4. Anticipated functional outcomes would be for him to hopefully achieve a level of gait at least with the walker if not the cane as he was doing before along with improvement in ADLs and improvement in cognition, so that he can return back to the home setting. 5. Discharge destination would be back home with his in their apartment. 6. Expected therapy by discipline includes PT, OT and speech 1 hour per day [address] [address] REHAB UNIT PLAN OF CARE Name: LETY LIN Room #: 501-A [facility] IN [facility]#: [id number] Admission: 07/31/17 Attend Phys: Yohan Soria MD Discharge: Date of : 33 Report #: [id number] each five days a week throughout the duration of the acute inpatient rehabilitation stay. <ELECTRONICALLY SIGNED> By: Yohan Soria MD 08/12/17 1509 1034 1247 Yohan Soria MD /PMT
--- NOTE | ~2017-07-31 | HC ---
[facility] [place] [address] CONSULTATION Name: LETY LIN Room #: 509-P ADM IN M.R.#: [id number] Admission: 07/31/17 Attend Phys: Yohan Soria MD Discharge: Date of : 33 Report #: [id number] THIS REPORT FOR: //name// CC: Jason Baxter MD REFERRING PHYSICIAN: Dr. Yohan Soria. REASON FOR CONSULTATION: Adenocarcinoma of the colon. HISTORY OF PRESENT ILLNESS: The patient is an 82-year-old gentleman from the [place] area who was admitted with abdominal pain and fever, was found to have a pericolonic abscess. At the time of surgery, he was found to have a colon cancer with biopsy of the liver showing cancer in those areas also. The surgery was a right hemicolectomy with adenocarcinoma that was ynnzexmzre-cs-euaiaf differentiated with extensive ulceration and tumor necrosis forming 3 separate masses measuring 7.4, 6.8 and 4.1 cm. They were similar morphologically. One mass invaded through the muscularis propria in to the subserosal adipose tissue, extending to the end serosal margin, was a PT4. Instrumentation of the 30 lymph nodes showed no cancer, the omentum showed no cancer, but the liver biopsy x 2 showed metastatic adenocarcinoma with extensive necrosis morphologically similar to the colon masses with no background of viable liver tissue present. They were aware of the history of prostate cancer and report that appropriate stains were performed. The tumor was described as poorly differentiated and the lymph nodes were negative. I do not see currently that MSI testing was done, but we will clarify as I would assume that this is being performed as is done in almost all colon cancer and endometrial cancers at this institution. The patient is now recovering. He did begin eating and drinking yesterday. He is now on rehabilitation. REVIEW OF SYSTEMS: The patient denies fevers, chills, nausea, vomiting or abdominal pain. He does have weakness, does have some abdominal discomfort. PAST MEDICAL HISTORY: Notable for the recent colon cancer, appendectomy many years ago, prostate cancer with prostatectomy in 2004, Parkinson disease, hyperlipidemia, hypertension and chronic back pain. 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 His also worked at the [employer] at the [employer] [facility] location. They live in [facility], . Nonsmoker. No significant alcohol, at least recently. [facility] [address] [place] [address] CONSULTATION Name: LETY LIN Room #: 509-P [facility] IN [facility].#: [id number] Admission: 07/31/17 Attend Phys: Yohan Soria MD Discharge: Date of : 33 Report #: [id number] PHYSICAL EXAMINATION: GENERAL: The patient appears his stated age. VITAL SIGNS: Height is 6 feet or 182.9 cm. Weight is 183.9 pounds or 83.4 kilograms. Blood pressure is 135/72, O2 sat 93% on room air, respirations 20, pulse 79 and afebrile at 98.6. HEENT: Face is symmetrical. LUNGS: Mostly clear. CARDIOVASCULAR: Regular rate. LYMPHATIC: No enlarged lymph nodes in the supraclavicular, cervical, axillary or inguinal region. ABDOMEN: Postop in the right lower quadrant. EXTREMITIES: Without clubbing, cyanosis or edema. LABORATORY DATA: Labs here has BUN of 17 and creatinine 1.1. Transaminases normal. Albumin 2. On 07/26/2017, iron was 11, percent saturation 8 and TIBC was 143. Coags were essentially normal. White count currently 16.9, hemoglobin 7.6 and stable compared to several days ago, MCV 74.3 and platelets 578,000. Differential fairly normal. TSH had been 1.54. Ferritin 528, folate 19.9, B12 of 607, CEA was 10, preop on 07/27/2017, 25-hydroxide D 31.8 and CA-99 at 275 slightly elevated. Imaging done this hospital stay includes a CT abdomen and pelvis that showed liver with multiple low-density masses and right colon wall thickening with apparent perforation in the ascending colon and multiple kidney stones. ASSESSMENT AND PLAN: 1. Colon cancer with metastasis to the liver. Call in to pathology to discuss the case. Also, we will make sure that MSI testing test is being done. The patient in the past had declined colonoscopies. We will let him recover from surgery. May consider colonoscopy and may also consider imaging. I am not sure if he will be willing to take chemotherapy or feel like symptoms are warranted. May consider observation for a while and consideration of chemotherapy if and when he progresses or has symptoms. 2. Parkinson's. Continues medicines for that. 3. Postoperative abscess. Continues antibiotics. We will follow with you. MEDICATIONS: Currently in the hospital include Lovenox 40 mg daily, famotidine 20 b.i.d., carbidopa-levodopa one tablet at 7 and 10 and 2 tabs at bedtime, MiraLax daily as needed, Tylenol as needed, Zofran as needed, aspirin 81 mg daily and penicillin q.4h. IV. <ELECTRONICALLY SIGNED> By: Andrea Dutton MD 08/02/17 0717 0848 1144 Andrea Dutton MD /mary alice
--- NOTE | ~2017-07-31 | H ---
[facility] [place] [address] HISTORY AND PHYSICAL Name: LETY LIN Room #: 501-A [facility] IN ..#: [id number] Admission: 07/31/17 Attend Phys: Yohan Soria MD Discharge: Date of : 33 Report #: [id number] THIS REPORT FOR: //name// CC: Yohan Santamaria DATE OF SERVICE: 08/01/2017 HISTORY OF PRESENT ILLNESS: This is an 82-year-old white male with a history of Parkinson's disease, hypertension, and complaints of weakness, left lower quadrant pain. He was noted to have sepsis secondary to an abdominal abscess and was diagnosed with an ascending colonic mass with a pericolonic abscess. He underwent surgery by with a laparoscopic converted to open right hemicolectomy with stapled ileal transverse colostomy. He also had a core needle liver biopsies which was done on 07/26/2017. He was seen by Dr. Dutton in Oncology with the path report still pending. He had some confusion, delirium, postoperatively that appeared to be improving, was noted to have some postoperative encephalopathy. Again, this was showing improvement. Geriatrics has been involved and they did decrease his Sinemet to one tablet and we are monitoring on this regard. The patient has some festination and cogwheeling, and decreased functional abilities along with his encephalopathy and generalized weakness and debilitation. He has been admitted for acute in-hospital inpatient rehabilitation. PAST MEDICAL HISTORY: Includes Parkinson's disease, hypertension, elevated cholesterol, chronic back pain, prostate cancer, status post prostatectomy low back issues for which he is followed with [facility] and has had intermittent injections. PAST SURGICAL HISTORY: Includes adenoidectomy and tonsillectomy. MEDICATIONS: Please see his full medication listing. Each of these was individually reconciled and includes vitamins, herbals and supplements. ALLERGIES: No known drug allergies. HABITS: No history of tobacco or alcohol abuse. SOCIAL HISTORY: Lives with his in an independent living apartment at [facility]. He has a premorbid cane ambulator. He also has a Parkinson's walker that he obtained through the [place], which it sounds like as a U-step walker with a laser cane. REVIEW OF SYSTEMS: He was sleepy, but no specific complaints of chest pain, shortness of breath, abdominal discomfort. He wears attends. He could help with donning his own shirt, although his helped with some of his ADLs. [facility] [address] [place] [address] HISTORY AND PHYSICAL Name: LETY LIN Room #: 501-A [facility] IN ..#: [id number] Admission: 07/31/17 Attend Phys: Yohan Soria MD Discharge: Date of : 33 Report #: [id number] PHYSICAL EXAMINATION: GENERAL: An 82-year-old white male who was seen earlier. He was sleepy, in no distress. Some latency to his responses is 4. Some evidence of masked facies. VITAL SIGNS: Temperature 36.7, pulse 80, respirations 20, blood pressure 137/68. HEENT: Facies otherwise appeared symmetric. CHEST: Sounded clear to auscultation. CARDIAC: Regular rate and rhythm. ABDOMEN: Bowel sounds positive, nontender. Abdominal binder in place. He has a wound VAC over the midline incision. EXTREMITIES: Mild resting tremor as before with some cogwheeling bilateral wrists and elbows. Strength is grade 3+ to 4-/5. DTRs are trace to 1. Lower extremities, 1+ distal lower extremity edema without focal calf swelling. Strength is probably a grade 3+/5. DTRs are decreased. He does have some mild rigidity. He has been needing max assist with sit to stand transfers. ASSESSMENT: An 82-year-old white male with the following problem list: 1. Parkinson's disease. 2. Metabolic encephalopathy, which has been noted to be improving. 3. Status post hemicolectomy with liver biopsy, 07/26/2017 with biopsy results pending. 4. Sepsis secondary to abdominal abscess with suspected colon cancer. 5. Mild pleural effusion. 6. Anemia. 7. Hypertension. 8. History of prostate cancer, status post prostatectomy. 9. Enlarged aorta by history. PLAN: The patient is admitted for acute in-hospital inpatient rehabilitation. From a postadmission physician evaluation perspective, there are no relevant changes since the preadmission screening. Please see the above review of prior and current medical and functional conditions and comorbidities. Please see the patient's previous and current functional status. As far as risk of complications, he has the multiple medical comorbidities as noted above. Initial plan of care involves the interdisciplinary acute inpatient rehabilitation program with the goal of maximizing his functional independence, so he can hopefully return back to his prior living situation. Measurable functional goals would be for him to ideally get back to the point where he can be cared for by his . He did use the walker versus cane and was able to assist with his ADLs. Prognosis is reasonably good with estimated length of stay probably at least 10 days to 2 weeks and potentially longer if needed. Potential barriers would include his multiple medical comorbidities and decreased functional status. The patient meets diagnostic criteria for an acute in-hospital inpatient [facility] [address] [place] [address] HISTORY AND PHYSICAL Name: LETY LIN Room #: 501-A ADM IN [facility].#: [id number] Admission: 07/31/17 Attend Phys: Yohan Soria MD Discharge: Date of : 33 Report #: [id number] rehabilitation stay. He meets medical necessity criteria and we will have the multiple design center consultant physicians continue to follow while he is on rehabilitation. He does have the tolerance for an acute inpatient rehabilitation stay and has appropriate discharge goals back to the home setting. <ELECTRONICALLY SIGNED> By: Yohan Soria MD 08/12/17 1509 0955 1036 Yohan Soria MD /[facility]
--- NOTE | ~2017-07-31 | D ---
[facility] [place] [address] DISCHARGE SUMMARY Name: LETY LIN Room #: 501-A [facility] IN ..#: [id number] Admission: 07/31/17 Attend Phys: Yohan Soria MD Discharge: 08/19/17 Date of : 31 Report #: [id number] THIS REPORT FOR: //name// CC: Yohan Santamaria DATE OF SERVICE: 08/19/2017 HISTORY OF PRESENT ILLNESS: This is an 82-year-old white male with history of Parkinson's disease, admitted with left lower quadrant pain. He was noted to have sepsis secondary to an abdominal abscess and underwent a hemicolectomy with stapled ileal transverse colostomy. He had core needle biopsies 07/26/2017. 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 He had a Sathish-Dunlap drain in place. He was monitored closely regarding anemia of chronic disease with iron supplementation. His Parkinson's disease was monitored with geriatrics involved. Continuing on the Sinemet. Psychiatry also saw him. They did recommend some p.r.n. Xanax and low dose Seroquel p.r.n. He had had some confusion and hallucinations at that time. He is followed closely by Infectious Disease. He had issues with a temperature up to 38.7 and his white count is increasing up to 18.6 and his overall function has declined. He is thus being transferred off the acute inpatient rehab guidry for further infectious disease workup and management. He has been started on IV piperacillin. ASSESSMENT: 1. Parkinson's disease. 2. Metabolic encephalopathy. He did have some hallucinations and confusion with psychiatry involved as well as noted above. 3. Status post hemicolectomy with liver biopsy, noted to have adenocarcinoma of the colon with metastases. 4. Febrile episode with elevated white count. He is being transferred off the acute rehab guidry. 5. Anemia. 6. Hypertension. 7. History of prostate cancer, status post prostatectomy. 8. Previous sepsis secondary to abdominal abscess. DISCHARGE MEDICATIONS AND DISCHARGE ACTIVITY: As per the accepting service. <ELECTRONICALLY SIGNED> By: Yohan Soria MD 08/23/17 1306 [id number] [id number] Yohan Soria MD /[facility]
[~2017-07-31 13:34] MED LIST changes: +MIDODRINE HCL 55 M1 PO
[2017-07-31 19:45] VITALS: BP 137/68
[2017-08-01 06:08] LABS: HEMATOCRIT 23.1 % (42.0-52.0); HEMOGLOBIN 7.6 gm/dL (14.0-18.0); MCH 24.6 pg (26.0-34.0); MCHC 33.1 g/dL (28.0-37.0); MCV 74.3 fL (80.0-100.0); RBC 3.1 mil/uL (4.50-6.00); RDW 15.8 % (10.5-14.5); WBC 16.9 thou/uL (4.0-11.0)
[2017-08-01 06:23] LABS: CREATININE 1.1 mg/dL (0.7-1.3); POTASSIUM 3.2 mmol/L (3.5-5.1)
[2017-08-01 08:29] VITALS: BP 135/72
[2017-08-01 19:58] VITALS: BP 117/68
[2017-08-02 06:12] LABS: HEMATOCRIT 22.2 % (42.0-52.0); HEMOGLOBIN 7.3 gm/dL (14.0-18.0); MCH 24.5 pg (26.0-34.0); MCHC 32.7 g/dL (28.0-37.0); MCV 74.8 fL (80.0-100.0); RBC 2.96 mil/uL (4.50-6.00); RDW 15.9 % (10.5-14.5); WBC 14.9 thou/uL (4.0-11.0)
[2017-08-02 06:23] LABS: CALCIUM 7.8 mg/dL (8.5-10.1); CREATININE 1.1 mg/dL (0.7-1.3); MAGNESIUM 1.9 mg/dL (1.8-2.4); POTASSIUM 3.2 mmol/L (3.5-5.1)
[2017-08-02 07:29] VITALS: BP 126/66
[2017-08-02 20:23] VITALS: BP 125/59
[2017-08-03 08:00] VITALS: BP 119/60
[2017-08-03 13:28] LABS: HEMATOCRIT 25.2 % (42.0-52.0); HEMOGLOBIN 8.1 gm/dL (14.0-18.0); MCH 24.8 pg (26.0-34.0); MCHC 32.2 g/dL (28.0-37.0); RBC 3.28 mil/uL (4.50-6.00); RDW 16.5 % (10.5-14.5); WBC 15.3 thou/uL (4.0-11.0)
[2017-08-03 13:38] LABS: CALCIUM 8.1 mg/dL (8.5-10.1); CREATININE 1.2 mg/dL (0.7-1.3)
[2017-08-03 20:03] VITALS: BP 131/64
[2017-08-04 09:52] VITALS: BP 119/65
[2017-08-04 10:20] LABS: HEMATOCRIT 23.5 % (42.0-52.0); HEMOGLOBIN 7.5 gm/dL (14.0-18.0); MCH 24.3 pg (26.0-34.0); MCHC 32.2 g/dL (28.0-37.0); MCV 75.7 fL (80.0-100.0); RBC 3.1 mil/uL (4.50-6.00); RDW 16.3 % (10.5-14.5); WBC 11.7 thou/uL (4.0-11.0)
[2017-08-04 10:27] LABS: POTASSIUM 4.3 mmol/L (3.5-5.1)
[2017-08-04 20:40] VITALS: BP 114/56
[2017-08-05 04:36] LABS: HEMATOCRIT 23.3 % (42.0-52.0); HEMOGLOBIN 7.5 gm/dL (14.0-18.0); MCH 24.3 pg (26.0-34.0); MCHC 32.4 g/dL (28.0-37.0); MCV 75.1 fL (80.0-100.0); RBC 3.1 mil/uL (4.50-6.00); RDW 16.5 % (10.5-14.5); WBC 13.7 thou/uL (4.0-11.0)
[2017-08-05 04:53] LABS: CALCIUM 8.2 mg/dL (8.5-10.1); CREATININE 1.1 mg/dL (0.7-1.3); MAGNESIUM 1.9 mg/dL (1.8-2.4); POTASSIUM 4.1 mmol/L (3.5-5.1)
[2017-08-05 07:37] VITALS: BP 134/62
[2017-08-05 21:21] VITALS: BP 126/63
[2017-08-06 03:06] LABS: ABSOLUTE NEUTROPHILS 11.6 thou/uL (1.4-8.2); BASOPHILS 1.2 % (0.0-2.0); EOSINOPHILS 3.9 % (0.0-3.0); HEMATOCRIT 23.1 % (42.0-52.0); HEMOGLOBIN 7.6 gm/dL (14.0-18.0); LYMPHOCYTES 11.1 % (24.0-44.0); MCH 24.8 pg (26.0-34.0); MCHC 33.1 g/dL (28.0-37.0); MCV 74.9 fL (80.0-100.0); MONOCYTES 10.4 % (1.0-8.0); PLATELET COUNT 624 thou/uL (150-400); POLYS 73.4 % (36.0-66.0); RBC 3.08 mil/uL (4.50-6.00); RDW 16.3 % (10.5-14.5); WBC 15.8 thou/uL (4.0-11.0)
[2017-08-06 03:32] LABS: ALBUMIN 1.7 g/dL (3.4-5.0); CALCIUM 8.1 mg/dL (8.5-10.1); CREATININE 1.1 mg/dL (0.7-1.3); MAGNESIUM 1.9 mg/dL (1.8-2.4); POTASSIUM 3.8 mmol/L (3.5-5.1); TOTAL BILIRUBIN 0.5 mg/dL (<0.1-1.0); TOTAL PROTEIN 5.8 g/dL (6.4-8.2)
[2017-08-06 07:30] VITALS: BP 130/53
[2017-08-06 16:21] LABS: % SATURATION 12 % (20-39); IRON 16 ug/dL (65-175); TIBC 130 ug/dL (250-450)
[2017-08-06 20:13] VITALS: BP 116/66
[2017-08-07 07:06] LABS: HEMATOCRIT 23.1 % (42.0-52.0); HEMOGLOBIN 7.8 gm/dL (14.0-18.0); MCH 24.7 pg (26.0-34.0); MCHC 33.8 g/dL (28.0-37.0); MCV 73.2 fL (80.0-100.0); PLATELET COUNT 598 thou/uL (150-400); RBC 3.16 mil/uL (4.50-6.00); RDW 16.5 % (10.5-14.5); WBC 15.1 thou/uL (4.0-11.0)
[2017-08-07 07:30] VITALS: BP 151/69
[2017-08-07 08:57] LABS: ABSOLUTE NEUTROPHILS 11.2 thou/uL (1.4-8.2); MYELOCYTES 1 %
[2017-08-07 08:58] LABS: ANISOCYTOSIS 1+; MICROCYTES 1+; OVALOCYTES 1+
[2017-08-07 08:59] LABS: POIKILOCYTOSIS 1+
[2017-08-07 09:00] VITALS: BP 117/48
[2017-08-07 14:00] VITALS: BP 108/61
[2017-08-07 19:58] VITALS: BP 139/77
[2017-08-08 08:30] VITALS: BP 125/66
[2017-08-08 19:29] VITALS: BP 146/75
[2017-08-09 04:51] LABS: RDW 16.9 % (10.5-14.5)
[2017-08-09 04:53] LABS: ABSOLUTE NEUTROPHILS 9.1 thou/uL (1.4-8.2); BASOPHILS 1.3 % (0.0-2.0); EOSINOPHILS 5.3 % (0.0-3.0); HEMATOCRIT 21.4 % (42.0-52.0); LYMPHOCYTES 11.9 % (24.0-44.0); MCH 24.6 pg (26.0-34.0); MCHC 32.5 g/dL (28.0-37.0); MCV 75.8 fL (80.0-100.0); MONOCYTES 10.9 % (1.0-8.0); PLATELET COUNT 611 thou/uL (150-400); POLYS 70.6 % (36.0-66.0); RBC 2.83 mil/uL (4.50-6.00); WBC 12.8 thou/uL (4.0-11.0)
[2017-08-09 05:03] LABS: CREATININE 1.1 mg/dL (0.7-1.3)
[2017-08-09 08:00] VITALS: BP 114/56
[2017-08-09 20:29] VITALS: BP 117/56
[2017-08-10 08:00] VITALS: BP 123/63
[2017-08-10 20:44] VITALS: BP 133/62
[2017-08-11 08:27] VITALS: BP 132/61
[2017-08-11 20:18] VITALS: BP 142/66
[2017-08-12 07:15] VITALS: BP 135/68
[2017-08-12 08:55] LABS: ABSOLUTE NEUTROPHILS 11.8 thou/uL (1.4-8.2); BASOPHILS 1.2 % (0.0-2.0); EOSINOPHILS 4.1 % (0.0-3.0); HEMATOCRIT 26.6 % (42.0-52.0); HEMOGLOBIN 8.5 gm/dL (14.0-18.0); LYMPHOCYTES 14.6 % (24.0-44.0); MCH 23.7 pg (26.0-34.0); MCHC 31.8 g/dL (28.0-37.0); MCV 74.5 fL (80.0-100.0); MONOCYTES 9.9 % (1.0-8.0); PLATELET COUNT 775 thou/uL (150-400); POLYS 70.2 % (36.0-66.0); RBC 3.57 mil/uL (4.50-6.00); RDW 17.1 % (10.5-14.5); WBC 16.7 thou/uL (4.0-11.0)
[2017-08-12 12:01] LABS: CALCIUM 8.5 mg/dL (8.5-10.1); CREATININE 1.1 mg/dL (0.7-1.3); POTASSIUM 4.1 mmol/L (3.5-5.1)
[2017-08-12 18:08] LABS: URINE BILIRUBIN 2+ (Negative); URINE BLOOD NEGATIVE (Negative); URINE CLARITY CLEAR; URINE GLUCOSE-RANDOM* NEGATIVE (Negative); URINE KETONES TRACE (Negative); URINE LEUKOCYTES-REFLEX NEGATIVE (Negative); URINE NITRITE-REFLEX NEGATIVE (Negative); URINE PROTEIN (DIPSTICK) TRACE (Negative)
[2017-08-12 18:12] LABS: ICTOTEST (BILI CONFIRMATORY) Positive (Negative); URINE COLOR AMBER
[2017-08-12 19:50] VITALS: BP 113/58
[2017-08-13 09:00] VITALS: BP 101/50
[2017-08-13 20:05] VITALS: BP 111/50
[2017-08-14 07:00] LABS: ABSOLUTE NEUTROPHILS 7.2 thou/uL (1.4-8.2); BASOPHILS 1.3 % (0.0-2.0); EOSINOPHILS 10.2 % (0.0-3.0); HEMATOCRIT 21.9 % (42.0-52.0); HEMOGLOBIN 7.2 gm/dL (14.0-18.0); LYMPHOCYTES 10.2 % (24.0-44.0); MCH 24.4 pg (26.0-34.0); MCV 73.9 fL (80.0-100.0); MONOCYTES 11.4 % (1.0-8.0); PLATELET COUNT 561 thou/uL (150-400); POLYS 66.9 % (36.0-66.0); RBC 2.96 mil/uL (4.50-6.00); RDW 17.4 % (10.5-14.5); WBC 10.8 thou/uL (4.0-11.0)
[2017-08-14 07:19] LABS: CALCIUM 8.3 mg/dL (8.5-10.1); MAGNESIUM 2.2 mg/dL (1.8-2.4); POTASSIUM 3.6 mmol/L (3.5-5.1)
[2017-08-14 08:17] VITALS: BP 118/54
[2017-08-14 20:59] VITALS: BP 115/59
[2017-08-15 08:00] VITALS: BP 123/64
[2017-08-15] MEDS ORDERED: IRON325 PO (11:30)
[2017-08-15] MEDS ORDERED: PEPCID20 MG PO (11:30)
[2017-08-15] MEDS ORDERED: MIRALAX17 GM PO (11:30)
[2017-08-15] MEDS ORDERED: ROBITUSSIN100 MG/53 PO (11:30)
[2017-08-15] MEDS ORDERED: OSELB75 PO (11:30)
[2017-08-15] MEDS ORDERED: TYLENOL325 MG PO (11:30)
[2017-08-15 20:13] VITALS: BP 113/67
[2017-08-16 03:15] LABS: ADENOVIRUS Negative (Negative); INFLUENZA A Negative (Negative); INFLUENZA B Negative (Negative); METAPNEUMOVIRUS Negative (Negative); PARAINFLUENZA 1 Negative (Negative); PARAINFLUENZA 2 Negative (Negative); PARAINFLUENZA 3 Negative (Negative); RHINOVIRUS Negative (Negative); RSV A Negative (Negative); RSV B Negative (Negative)
[2017-08-16 06:26] LABS: ABSOLUTE NEUTROPHILS 8.9 thou/uL (1.4-8.2); BASOPHILS 1.1 % (0.0-2.0); EOSINOPHILS 9.9 % (0.0-3.0); HEMOGLOBIN 7.5 gm/dL (14.0-18.0); LYMPHOCYTES 10.3 % (24.0-44.0); MCH 24.3 pg (26.0-34.0); MCHC 32.6 g/dL (28.0-37.0); MCV 74.7 fL (80.0-100.0); MONOCYTES 9.9 % (1.0-8.0); PLATELET COUNT 600 thou/uL (150-400); POLYS 68.8 % (36.0-66.0); RBC 3.08 mil/uL (4.50-6.00); RDW 17.3 % (10.5-14.5)
[2017-08-16 06:41] LABS: CALCIUM 8.4 mg/dL (8.5-10.1); MAGNESIUM 2.3 mg/dL (1.8-2.4); POTASSIUM 3.9 mmol/L (3.5-5.1)
[2017-08-16 08:20] VITALS: BP 147/69
[2017-08-16 20:44] VITALS: BP 144/74
[2017-08-17 07:15] VITALS: BP 133/63
[2017-08-17 20:09] VITALS: BP 116/57
[2017-08-18 01:42] VITALS: BP 125/69
[2017-08-18 03:14] LABS: HEMATOCRIT 25.3 % (42.0-52.0); HEMOGLOBIN 8.1 gm/dL (14.0-18.0); MCH 23.8 pg (26.0-34.0); MCHC 32.2 g/dL (28.0-37.0); RBC 3.41 mil/uL (4.50-6.00); RDW 17.4 % (10.5-14.5); WBC 16.8 thou/uL (4.0-11.0)
[2017-08-18 09:24] VITALS: BP 117/51
[2017-08-18 20:00] VITALS: BP 93/42
[2017-08-18 23:14] LABS: URINE BILIRUBIN NEGATIVE (Negative); URINE BLOOD NEGATIVE (Negative); URINE CLARITY CLEAR; URINE COLOR YELLOW; URINE GLUCOSE-RANDOM* NEGATIVE (Negative); URINE KETONES TRACE (Negative); URINE LEUKOCYTES-REFLEX NEGATIVE (Negative); URINE NITRITE-REFLEX NEGATIVE (Negative); URINE PROTEIN (DIPSTICK) TRACE (Negative); URINE SPECIFIC GRAVITY 1.025 (1.005-1.035); URINE UROBILINOGEN 0.2 E.U./dl (0.2-1.0)
[2017-08-19 06:09] LABS: ABSOLUTE NEUTROPHILS 15.9 thou/uL (1.4-8.2); BASOPHILS 0.6 % (0.0-2.0); EOSINOPHILS 4.1 % (0.0-3.0); HEMATOCRIT 24.6 % (42.0-52.0); HEMOGLOBIN 7.8 gm/dL (14.0-18.0); LYMPHOCYTES 4.2 % (24.0-44.0); MCH 23.6 pg (26.0-34.0); MCHC 31.6 g/dL (28.0-37.0); MCV 74.8 fL (80.0-100.0); MONOCYTES 5.9 % (1.0-8.0); PLATELET COUNT 534 thou/uL (150-400); POLYS 85.2 % (36.0-66.0); RBC 3.29 mil/uL (4.50-6.00); RDW 17.6 % (10.5-14.5); WBC 18.6 thou/uL (4.0-11.0)
[2017-08-19 06:35] LABS: ALBUMIN 1.7 g/dL (3.4-5.0); CALCIUM 7.8 mg/dL (8.5-10.1); CREATININE 1.1 mg/dL (0.7-1.3); MAGNESIUM 2.3 mg/dL (1.8-2.4); POTASSIUM 3.9 mmol/L (3.5-5.1); TOTAL BILIRUBIN 0.5 mg/dL (<0.1-1.0); TOTAL PROTEIN 5.9 g/dL (6.4-8.2)
[2017-08-19] MEDS ORDERED: ZOSYN 3.3753.375 GM IV (08:51)
[2017-08-19] MEDS ORDERED: CARBIDOPA-LEVO1 EAC9 PO ×2 (08:52→08:53)
[2017-08-19] MEDS ORDERED: ENOXAPARIN40 MG/0.1 SUBQ (08:52)
[2017-08-19 09:10] VITALS: BP 103/47
== END 2017-08-19 11:27 | DRG 56 ==
LOC: ENTRNSPT 08-19 11:06 → EDTRNSPTSTS 08-19 11:08
PROVIDERS: Internal Medicine; Internal Medicine Hematology & Oncology; Nurse Practitioner; Nurse Practitioner Acute Care; Physical Medicine & Rehabilitation; Registered Nurse
DX: G20 Parkinson's disease (principal); G93.41 Metabolic encephalopathy; K65.1 Peritoneal abscess; E43 Unspecified severe protein-calorie malnutrition; C18.9 Malignant neoplasm of colon, unspecified; C78.7 Secondary malignant neoplasm of liver and intrahepatic bile duct; J90 Pleural effusion, not elsewhere classified; I10 Essential (primary) hypertension; R41.9 Unspecified symptoms and signs involving cognitive functions and awareness; F43.22 Adjustment disorder with anxiety; E78.00 Pure hypercholesterolemia, unspecified; G89.29 Other chronic pain; M54.9 Dorsalgia, unspecified; R53.81 Other malaise; D47.3 Essential (hemorrhagic) thrombocythemia; R41.0 Disorientation, unspecified; R32 Unspecified urinary incontinence; D63.8 Anemia in other chronic diseases classified elsewhere; E78.5 Hyperlipidemia, unspecified; Z90.49 Acquired absence of other specified parts of digestive tract; Z68.24 Body mass index [BMI] 24.0-24.9, adult; Z85.46 Personal history of malignant neoplasm of prostate
CPT/HCPCS: 10112

== ENCOUNTER 2017-08-19 09:04 | Inpatient (IN) | payer OTHER ==
[~2017-08-19] VITALS: Ht 185.4 cm; Wt 75.8 kg
--- NOTE | ~2017-08-19 | H ---
[facility] [place] [address] HISTORY AND PHYSICAL Name: LETY LIN Room #: 426-P ADM IN M.R.#: [id number] Admission: 08/19/17 Attend Phys: Sd Lock MD Discharge: Date of : 33 Report #: [id number] THIS REPORT FOR: //name// CC: Sd Santamaria DATE OF SERVICE: 08/19/2017 CHIEF COMPLAINT: Fever and confusion. HISTORY OF PRESENT ILLNESS: The patient is an 82-year-old man who was hospitalized here on 07/25/2017. At that time, the patient had intra-abdominal abscess. He was found to have colon cancer, and he underwent partial colon resection. He was treated for sepsis as well. After hospitalization, the patient was transferred to the rehabilitation unit on 07/31/2017. The patient was doing well until a couple of days ago, when he started spiking fever again, and he became confused. The patient was started on Zosyn again, but so far, no source of infection is identified. The patient is closely followed by Infectious Disease specialist. Today, the patient is alert and awake, and he is oriented x 2. According to the , the patient is already doing better. The patient feels weak, but he has no other complaints. He has no shortness of breath, chest pain, heart palpitations, dizziness, blurry vision or other problems. PAST MEDICAL HISTORY: 1. Recently diagnosed colon cancer with liver metastatic lesions. Status post partial colon resection about 3 weeks ago. 2. Hypertension. 3. Dyslipidemia. 4. Parkinson's disease. 5. History of prostate cancer. CURRENT MEDICATIONS: Reviewed and documented in the patient's chart. FAMILY HISTORY: Reviewed and not pertinent to the patient's current condition. SOCIAL HISTORY: The patient is never smoker. He does not drink alcohol. REVIEW OF SYSTEMS: As above in HPI section, all others negative. PHYSICAL EXAMINATION: GENERAL: The patient is ill-appearing elderly man. He is alert and oriented x 2. His blood pressure is 100/53, heart rate is 82 and regular, respiration is 16, temperature is 98.2. HEENT: Pupils are equal. Eye movements are normal. The patient has [facility] [address] [place] [address] HISTORY AND PHYSICAL Name: LETY LIN Room #: 426-P [facility] IN ..#: [id number] Admission: 08/19/17 Attend Phys: Sd Lock MD Discharge: Date of : 33 Report #: [id number] sclerae. NECK: Supple. He has no thyromegaly. The patient has no carotid bruits. LUNGS: Clear to auscultation bilaterally. Chest moves symmetrically with breathing. CARDIOVASCULAR: The patient has normal PMI. He has no murmurs, gallops or rubs. Heart rate is regular. GASTROINTESTINAL: There is poor surgical wound, that has healed well. His abdomen is soft. Bowel sounds are present. Hepatomegaly or splenomegaly is not palpated. MUSCULOSKELETAL: The patient has no joint deformities. Range of motion is normal. The patient has trace edema on lower extremities. NEUROLOGIC: The patient is alert and oriented x 2. His examination is nonfocal. SKIN: Dry and warm. He has no skin lesions. LABORATORY DATA: Basic metabolic profile is essentially normal. Liver function tests are normal. Albumin is 1.7 and calcium is 7.8. On CBC, white count is 18.6, hemoglobin is 7.8, hematocrit is 24.6, platelets 534, 0 bands and neutrophils 85%. ASSESSMENT AND PLAN: An 82-year-old man with newly diagnosed colon cancer metastatic to liver. Status post hemicolectomy about 3 weeks ago. As noted, at that time, the patient presented with intra-abdominal abscess, and he has small drain, without significant output. The patient was discharged to the rehab on 07/31/2017, and he is currently admitted directly from rehabilitation for fever, and confusion. 1. Fever. The patient is empirically started on Zosyn. Infectious Disease specialist is following the patient. Consultation is very much appreciated. Blood cultures are obtained. The patient will have abdominal CT scan, to determine source. 2. Toxic encephalopathy due to above. Slightly better. The patient is less confused, alert and oriented x 2 today. Continue supportive care. 3. Parkinson's disease. Resume home medications. 4. Newly diagnosed colon cancer, metastatic to liver. Follow up with the oncologist as planned. 5. Severe protein calorie malnutrition. 6. Deep venous thrombosis prophylaxis. SubQ Lovenox. <ELECTRONICALLY SIGNED> By: Sd Lock MD 08/21/17 1646 [id number] Sd Lock MD /nt
--- NOTE | ~2017-08-19 | HC ---
[facility] [place] [address] CONSULTATION Name: LETY LIN Room #: 426-P ADM IN M.R.#: [id number] Admission: 08/19/17 Attend Phys: Sd Lock MD Discharge: Date of : 33 Report #: [id number] THIS REPORT FOR: //name// CC: Jason Baxter MD REASON FOR CONSULTATION: Metastatic colon cancer. HISTORY OF PRESENT ILLNESS: The patient is an 82-year-old gentleman who I had met back in July when he was diagnosed with a colon cancer metastatic to liver, with a very small perforation at that time. He had subsequent surgery, had 3 anastomoses. He had 3 separate tumors in the colon and then biopsy of the liver showing changes consistent with adenocarcinoma. He had been up and rehab recovered. Unfortunately, about 2 days ago, over the weekend, he began having mental status changes and fever. He was begun on Zosyn about 2 days ago. This morning, he woke up feeling much more normal according to his . He is able to carry on his usual conversations. At this time, the patient denies any headache, fevers, chills, nausea, vomiting, arm or leg swelling. Does have some heel pain. Note that he had this before coming to the hospital even back in July. I did review with the patient and his his recent CAT scan showing significant or interval change in his liver lesions since his last CAT scan on 07/25. For example, lesion may be within the right hepatic lobe had measured 4.5 x 4.9, does measure 6.2 x 6.8. There are another 2 lesions upper lateral right measuring 4.3 and 4, so they thought these were increasing in size. These other 2 lesions measured 4.3 and 4 and now 4.9, 5.9 if I understand this correctly. I explained this to the and the patient that we need to focus on rehab measures, but on my own, I would worry about whether this suggest significant and fairly rapid increase in his tumor size. Note that the patient's tumor does have changes in the tumor with loss of mis-measured paraproteins MLH1 and TMS2. These could be related to Valdes or related to a BRAF mutation. They would make him eligible for consideration and treatment with KEYTRUDA/pembrolizumab. This is an immunotherapy. The patient went on to be significantly stronger to be able to tolerate this therapy, it is not a cure-all, but response rate a little bit higher than regular chemo, and he might be able to tolerate, he would not be able to at this time. PAST MEDICAL HISTORY: Notable for the recent colon cancer with mets to the liver after path review, also an appendectomy, prostate cancer with prostatectomy in 2004. Parkinson disease, hyperlipidemia, hypertension, chronic [facility] [address] [place] [address] CONSULTATION Name: RILEYLETY E Room #: 426-P [facility] IN M.R.#: [id number] Admission: 08/19/17 Attend Phys: Sd Lock MD Discharge: Date of : 33 Report #: [id number] back pain. Iron deficiency anemia and note the patient received iron sucrose in July, is now on oral iron. 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 His also worked with the [employer] at the [facility] location. They currently live in [facility]. He is a nonsmoker, no significant alcohol recently. CURRENT MEDICATIONS: At this time, include ferrous sulfate 325 mg daily, Lovenox 40 mg daily, carbidopa/levodopa at varying doses. Famotidine 20 b.i.d., vitamin C 500 mg at bedtime, aspirin 81 mg at bedtime, MiraLax 17 grams daily, guaifenesin 100 mg q.4 p.r.n., Tylenol p.r.n. and Zosyn begun on 08/19/2017. PHYSICAL EXAMINATION: VITAL SIGNS: The patient's height is 6 feet 1 inch, weight 167 pounds that is also 185.4 cm, 75.8 kilograms, blood pressure is 130/64, O2 sat 96%, respirations 18, pulse 68, afebrile at 97.8. Note that his temperature on 08/18 had been 101.6. MOOD: The patient is alert and pleasant, though somewhat flat affect. NEUROLOGIC: His face is symmetrical. He was able to move his extremities, though is quite weak. HEART: Appears regular rate. LUNGS: Clear with symmetric respirations anteriorly. LYMPH: No enlarged lymph nodes in the supraclavicular, cervical, axillary, inguinal region. ABDOMEN: He still has a Sathish-Dunlap drain on the right lower quadrant, right mid quadrant. EXTREMITIES: Without clubbing, cyanosis. RECENT LABORATORY DATA: Shows a BUN of 14, creatinine of 1. Liver functions have been normal, though alkaline phosphatase elevated at 182. Albumin 1.7. Iron panel on 08/06 showed low iron, but also low TIBC. Coags have been normal. Recent white count had been as high as 18, is down to 13. Hemoglobin 7.4, MCV 73.6, platelets 559. Differential has increased segs and neutrophils. Note that CEA preop had been 10, folate and B12 have been checked and normal. Thyroid has been normal. ASSESSMENT AND PLAN: 1. Colon cancer with liver mets. Recent CAT scan shows significant interval increase, which is quite worrisome, though this was not discussed with the patient. I did discuss that the CAT scan does show progression, so they are aware of this. Note also with the loss of MLH1 and PMS2, he would be considered candidate for KEYTRUDA chemotherapy if he gets strong enough, which is not the case at this time, this still has significant side effects and is not ____. 2. Fever. Cultures are still negative. Continue antibiotics; defervescing, which is encouraging. [facility] [address] [place] [address] CONSULTATION Name: LETY LIN Room #: 426-P ADM IN M.R.#: [id number] Admission: 08/19/17 Attend Phys: Sd Lock MD Discharge: Date of : 33 Report #: [id number] 3. Weakness and deconditioning. We will most likely be having PT, OT services consultation in the near future. 4. Anemia. Continue monitoring on oral iron. 5. Delirium, improved. 6. History of prostate cancer, neuroendocrine differentiation. 7. History of Parkinson's. Continue medications. We will continue following. <ELECTRONICALLY SIGNED> By: Andrea Dutton MD 08/21/17 0831 [id number] Andrea Dutton MD /mary alice
[~2017-08-19 09:04] MED LIST changes: +CARBIDOPA-LEVO1 EAC9 PO; +ENOXAPARIN40 MG/0.1 SUBQ; +IRON325 PO; +MIRALAX17 GM PO; +OSELB75 PO; +PEPCID20 MG PO; +ROBITUSSIN100 MG/53 PO; +TYLENOL325 MG PO; +ZOSYN 3.3753.375 GM IV
[2017-08-19 11:20] VITALS: BP 110/53
[2017-08-19 19:58] VITALS: BP 128/63
[2017-08-20 00:09] VITALS: BP 117/66
[2017-08-20 04:16] VITALS: BP 130/64
[2017-08-20 05:50] LABS: ABSOLUTE NEUTROPHILS 9.9 thou/uL (1.4-8.2); BASOPHILS 0.5 % (0.0-2.0); EOSINOPHILS 14.1 % (0.0-3.0); HEMATOCRIT 22.5 % (42.0-52.0); HEMOGLOBIN 7.4 gm/dL (14.0-18.0); LYMPHOCYTES 5.9 % (24.0-44.0); MCH 24.2 pg (26.0-34.0); MCHC 32.9 g/dL (28.0-37.0); MCV 73.6 fL (80.0-100.0); MONOCYTES 8.2 % (1.0-8.0); PLATELET COUNT 559 thou/uL (150-400); POLYS 71.3 % (36.0-66.0); RBC 3.06 mil/uL (4.50-6.00); RDW 17.4 % (10.5-14.5); WBC 13.8 thou/uL (4.0-11.0)
[2017-08-20 06:06] LABS: CALCIUM 7.8 mg/dL (8.5-10.1); POTASSIUM 4.1 mmol/L (3.5-5.1)
[2017-08-20 08:15] VITALS: BP 109/55
[2017-08-20 17:00] VITALS: BP 125/79
[2017-08-20 19:47] VITALS: BP 125/66
[2017-08-21 04:31] VITALS: BP 150/63
[2017-08-21 07:00] LABS: ABSOLUTE NEUTROPHILS 9.3 thou/uL (1.4-8.2); BASOPHILS 0.6 % (0.0-2.0); EOSINOPHILS 15.5 % (0.0-3.0); HEMATOCRIT 26.1 % (42.0-52.0); HEMOGLOBIN 8.1 gm/dL (14.0-18.0); LYMPHOCYTES 6.9 % (24.0-44.0); MCH 23.3 pg (26.0-34.0); MCHC 31.1 g/dL (28.0-37.0); MCV 74.7 fL (80.0-100.0); MONOCYTES 8.5 % (1.0-8.0); PLATELET COUNT 603 thou/uL (150-400); POLYS 68.5 % (36.0-66.0); RDW 17.2 % (10.5-14.5); WBC 13.6 thou/uL (4.0-11.0)
[2017-08-21 07:06] LABS: CALCIUM 8.1 mg/dL (8.5-10.1); POTASSIUM 4.4 mmol/L (3.5-5.1)
[2017-08-21 07:45] VITALS: BP 208/122
[2017-08-21 07:50] VITALS: BP 115/65
[2017-08-21 15:45] VITALS: BP 97/58
[2017-08-21 20:30] VITALS: BP 113/52
[2017-08-22 04:30] VITALS: BP 122/56
[2017-08-22 04:53] LABS: BASOPHILS 1.2 % (0.0-2.0); EOSINOPHILS 13.3 % (0.0-3.0); HEMATOCRIT 23.1 % (42.0-52.0); HEMOGLOBIN 7.3 gm/dL (14.0-18.0); LYMPHOCYTES 7.9 % (24.0-44.0); MCH 23.3 pg (26.0-34.0); MCHC 31.7 g/dL (28.0-37.0); MCV 73.5 fL (80.0-100.0); MONOCYTES 8.6 % (1.0-8.0); PLATELET COUNT 613 thou/uL (150-400); RBC 3.15 mil/uL (4.50-6.00); WBC 11.6 thou/uL (4.0-11.0)
[2017-08-22 05:04] LABS: CALCIUM 7.9 mg/dL (8.5-10.1); POTASSIUM 3.5 mmol/L (3.5-5.1)
[2017-08-22 08:54] VITALS: BP 130/79
[2017-08-22 16:00] VITALS: BP 122/61
[2017-08-22 20:00] VITALS: BP 103/45
[2017-08-23 04:23] VITALS: BP 122/62
[2017-08-23 06:46] LABS: HEMATOCRIT 24.5 % (42.0-52.0); HEMOGLOBIN 7.8 gm/dL (14.0-18.0); MCH 23.6 pg (26.0-34.0); MCHC 31.8 g/dL (28.0-37.0); MCV 74.2 fL (80.0-100.0); RBC 3.3 mil/uL (4.50-6.00); RDW 17.4 % (10.5-14.5); WBC 12.7 thou/uL (4.0-11.0)
[2017-08-23 07:30] VITALS: BP 136/71
[2017-08-23] MEDS ORDERED: CARBIDOPA-LEVO1 EAC9 PO ×6 (12:51→13:00)
[2017-08-23] MEDS ORDERED: AUGMENTIN 875-1 EACH PO (12:51)
== END 2017-08-23 15:29 | DRG 91 ==
LOC: TBA 09:04 → 4E 11:28
PROVIDERS: Internal Medicine; Internal Medicine Endocrinology, Diabetes & Metabolism
DX: G92 Toxic encephalopathy (principal); E43 Unspecified severe protein-calorie malnutrition; C18.9 Malignant neoplasm of colon, unspecified; C78.7 Secondary malignant neoplasm of liver and intrahepatic bile duct; D64.9 Anemia, unspecified; G20 Parkinson's disease; D72.829 Elevated white blood cell count, unspecified; D47.3 Essential (hemorrhagic) thrombocythemia; I10 Essential (primary) hypertension; E78.5 Hyperlipidemia, unspecified; Z68.22 Body mass index [BMI] 22.0-22.9, adult; Z85.46 Personal history of malignant neoplasm of prostate; Z93.3 Colostomy status
CPT/HCPCS: 10183